=== PATIENT | male | born 1930 | race Caucasian/White ===

== ENCOUNTER 2017-06-24 13:47 | Inpatient (IN) | payer OTHER ==
[2017-06-24 13:47] VITALS: BMI 32.9
--- NOTE | 2017-06-24 14:39 | RAD ---
HISTORY: Fever, cough COMPARISON: 06/10/2015 FINDINGS: LUNGS: No active pulmonary disease. PLEURA: No significant pleural effusion identified, no pneumothorax apparent. CARDIOVASCULAR: Normal. OSSEOUS STRUCTURES: No significant abnormalities. VISUALIZED UPPER ABDOMEN: Normal. OTHER FINDINGS: None. IMPRESSION: No active disease.
[2017-06-24 14:54] LABS: VENOUS BLOOD GAS BASE EXCESS -2.2 mmol/L (0.0-2.0); VENOUS BLOOD GAS PCO2 37 mmHg (40-60); VENOUS BLOOD GAS PO2 31 mm/Hg (30-55); VENOUS BLOOD PH 7.39 (7.32-7.43)
[2017-06-24 14:55] LABS: BASO % 0.3 % (0.0-2.0); EOS % 0.2 % (0.0-4.0); HEMOGLOBIN 15.1 g/dL (12.0-18.0); LYMPH # 0.9 K/uL (1.0-4.3); LYMPH % 17.9 % (20.0-40.0); MEAN CORPUSCULAR HEMOGLOBIN 27.8 pg (27.0-31.0); MEAN CORPUSCULAR HGB CONC 34.4 g/dL (33.0-37.0); MEAN PLATELET VOLUME 10.1 fL (7.2-11.7); MONO # 0.6 K/uL (0.0-0.8); MONO % 11.2 % (0.0-10.0); NEUT # 3.5 K/uL (1.8-7.0); NEUT % 70.4 % (50.0-75.0); RBC 5.44 Mil/uL (4.40-5.90); RED CELL DISTRIBUTION WIDTH 15.5 % (11.5-14.5)
[2017-06-24 14:57] LABS: INR 1.2; MEAN CELL VOLUME 80.9 fL (80.0-94.0); PROTHROMBIN TIME 13.2 SECONDS (9.7-12.2)
[2017-06-24 14:59] LABS: ALB/GLOB RATIO 1.2 (1.0-2.1); ALBUMIN 3.8 g/dL (3.5-5.0); ALT/SGPT 52 U/L (21-72); AST/SGOT 78 U/L (17-59); BLOOD UREA NITROGEN 21 mg/dL (9-20); CALCIUM 8.8 mg/dl (8.6-10.4); GFR AFRICAN-AMERICAN > 60; GFR NON-AFRICAN AMERICAN 52
[2017-06-24 16:00] LABS: URINE BILIRUBIN NEGATIVE (NEGATIVE); URINE BLOOD NEGATIVE (NEGATIVE); URINE CLARITY Clear (Clear); URINE COLOR Amber (YELLOW); URINE GLUCOSE (UA) NORMAL (Normal); URINE LEUKOCYTE ESTERASE NEG Leu/uL (Negative); URINE PROTEIN 1+ mg/dL (NEGATIVE)
[2017-06-24] MEDS ORDERED: Vancomycin 1 gm/NS 200 ml 1 GM/200 ML BAG IVPB STA (16:25)
[2017-06-24] MEDS ORDERED: Aztreonam 2 GM in Sodium Chloride 0.9% 100 ML IVPB STA (16:25)
--- NOTE | 2017-06-24 17:11 | C.PDOC ---
Time Seen by Provider: 06/24/17 14:08 Chief Complaint (Nursing): Fever History Per: Patient, Family Onset/Duration Of Symptoms: Days (1) Current Symptoms Are (Timing): Still Present Associated Symptoms: Fever, Cough (mild), Myalgias Severity: Moderate Additional History Per: Prior Records Past Medical History Reviewed: Historical Data, Nursing Documentation, Vital Signs Vital Signs: Last Vital Signs Temp 100 F H 06/24/17 15:15 Pulse 86 06/24/17 16:17 Resp 18 06/24/17 16:17 BP 91/48 L 06/24/17 16:17 Pulse Ox 95 06/24/17 17:10 - Medical History PMH: Arthritis, Asthma, Bronchitis, COPD, HTN, Parkinson's Disease - [facility] Procedures VACCINATION NEC (03/16/14) Family History: States: Unknown Family Hx - Social History Hx Tobacco Use: Yes Hx Alcohol Use: No Hx Substance Use: No - Immunization History Hx Tetanus Toxoid Vaccination: No Hx Influenza Vaccination: Yes Hx Pneumococcal Vaccination: Yes Review Of Systems Except As Marked, All Systems Reviewed And Found Negative. Constitutional: Positive for: Fever, Malaise ENT: Negative for: Throat Pain Cardiovascular: Negative for: Chest Pain Respiratory: Negative for: Shortness of Breath, Hemoptysis Gastrointestinal: Negative for: Vomiting, Abdominal Pain, Diarrhea Genitourinary: Negative for: Dysuria Musculoskeletal: Negative for: Neck Pain, Back Pain Skin: Negative for: Rash Neurological: Negative for: Weakness, Numbness, Seizures, Altered Mental Status Physical Exam - Physical Exam Appears: Non-toxic, No Acute Distress Skin: Normal Color, Warm, Dry, No Rash Head: Atraumatic, Normacephalic Eye(s): bilateral: Normal Inspection, PERRL, EOMI Neck: Normal ROM, Supple Cardiovascular: Rhythm Regular Respiratory: Normal Breath Sounds, No Accessory Muscle Use Gastrointestinal/Abdominal: Soft, No Tenderness Back: No CVA Tenderness Extremity: Normal ROM Neurological/Psych: Oriented x3, Normal Speech, Normal Cognition, Normal Motor, Normal Sensation ED Course And Treatment - Laboratory Results Result Diagrams: 06/24/17 14:42 06/24/17 14:42 ECG: Interpreted By Me, Viewed By Me ECG Rhythm: Sinus Tachycardia, Nonspecific Changes Rate From EC O2 Sat by Pulse Oximetry: 95 Pulse Ox Interpretation: Normal - Radiology CXR: Viewed By Me, Read By Radiologist CXR Interpretation: Yes: No Acute Disease Reassessment Condition: Improved Progress - Interventions Interventions:: Observation, Intravenous fluid - Medications Administered Oral: Acetaminophen Intravenous: Other (Abx) - Data Reviewed Data Reviewed: Lab, Diagnostic imaging, EKG, Old records - Patient Status Patient status: Partially improved - Critical Care Citical Care: Excluding Proc Time Critical Care Time: 60 minutes - Continuity of Care Discussed patient case with:: Patient, Family-HIPPA compliant, ED Nurse, PMD - Patient Plan Patient Plan: Admission, Telemetry Disposition Discussed With DrPerfecto: Greg Ryan Comment: He accepted pt on his service. Doctor Will See Patient In The: Hospital Counseled Patient/Family Regarding: Studies Performed, Diagnosis - Disposition Disposition: HOSPITALIZED Disposition Time: 17:13 Condition: FAIR - Clinical Impression Clinical Impression: Sepsis, Fever, unknown origin
[2017-06-24] MEDS ORDERED: Sodium Chloride 0.9% 1,000 ML IV ONE (17:58)
[2017-06-24 18:12] LABS: VENOUS BLOOD GAS BASE EXCESS -2.4 mmol/L (0.0-2.0); VENOUS BLOOD GAS PCO2 34 mmHg (40-60); VENOUS BLOOD GAS PO2 53 mm/Hg (30-55); VENOUS BLOOD PH 7.41 (7.32-7.43)
[2017-06-24] MEDS ORDERED: Sodium Chloride 0.9% 500 ML IV SCH (18:15)
[2017-06-24] MEDS ORDERED: Sodium Chloride 0.9% 1,000 ML IV SCH (18:15)
[2017-06-24] MEDS ORDERED: Albuterol-Ipratrop 3 mg / 0.5 (3 ml) UD ONE (20:26)
[2017-06-24] MEDS: Albuterol-Ipratrop 3 mg / 0.5 (3 ml) UD INH SCH (20:38)
[2017-06-24] MEDS: Vancomycin 1 gm/NS 200 ml 1 GM/200 ML BAG IVPB SCH (22:23)
[2017-06-25] MEDS: Piperacill/Tazo 3.375gm in Dex 3.375 GM/50 ML BAG IVPB SCH ×4 (00:03→22:38)
[2017-06-25] MEDS: Albuterol-Ipratrop 3 mg / 0.5 (3 ml) UD INH SCH ×3 (07:49→20:00)
[2017-06-25] MEDS ORDERED: TRICOR 134 MG PO SCH (10:00)
--- NOTE | 2017-06-25 20:36 | CP.PCM.CON ---
History of Present Illness - History of Present Illness History of Present Illness: INFECTIOUS DISEASE CONSULT; PATIENT SEEN AND EXAMINED , HISTORY OBTAINED WITH THE FAMILY WITH AN SAXOPHONE PLAYER. CONSULTATION DICTATED. DICTATION NUMBER; # [id number]. SEE REPORTS.. Past Patient History - Infectious Disease Hx of Infectious Diseases: None - Past Medical History & Family History Past Medical History?: Yes - Past Social History Smoking Status: Former Smoker - CARDIAC Hx Cardiac Disorders: Yes Hx Hypertension: Yes - PULMONARY Hx Respiratory Disorders: Yes Hx Asthma: Yes Hx Bronchitis: Yes Hx Chronic Obstructive Pulmonary Disease (COPD): Yes - NEUROLOGICAL Hx Neurological Disorder: Yes Hx Parkinson's Disease: Yes - HEENT Hx HEENT Problems: Yes Hx Cataracts: Yes (s/p surgery) - RENAL Hx Chronic Kidney Disease: No - ENDOCRINE/METABOLIC Hx Endocrine Disorders: No - HEMATOLOGICAL/ONCOLOGICAL Hx Blood Disorders: No - INTEGUMENTARY Hx Dermatological Problems: No - MUSCULOSKELETAL/RHEUMATOLOGICAL Hx Musculoskeletal Disorders: Yes Hx Arthritis: Yes Hx Falls: No - GASTROINTESTINAL Hx Gastrointestinal Disorders: No - GENITOURINARY/GYNECOLOGICAL Hx Genitourinary Disorders: Yes Hx Prostate Cancer: Yes Other/Comment: Prostate CA with seeds implated 2004 - PSYCHIATRIC Hx Psychophysiologic Disorder: No Hx Substance Use: No - SURGICAL HISTORY Hx Surgeries: Yes Hx Cataract Extraction: Yes (Left 2012 Right 2014) - ANESTHESIA Hx Anesthesia: Yes Hx Anesthesia Reactions: No Hx Malignant Hyperthermia: No Meds Allergies/Adverse Reactions: Allergies Allergy/AdvReac Type Severity Reaction Status Date / Time No Known Allergies Allergy Verified 05/08/15 18:44 - Medications Medications: Current Medications Acetaminophen (Tylenol 325mg Tab) 650 mg PO Q6 PRN PRN Reason: Fever >100.4 F Last Admin: 06/25/17 01:25 Dose: 650 mg Albuterol/Ipratropium (Duoneb 3 Mg/0.5 Mg (3 Ml) Ud) 3 ml INH RQ6 [facility] Last Admin: 06/25/17 20:00 Dose: 3 ml Aspirin (Ecotrin) 81 mg PO DAILY [facility] Last Admin: 06/25/17 09:35 Dose: 81 mg Clopidogrel Bisulfate (Plavix) 75 mg PO DAILY [facility] Last Admin: 06/25/17 09:35 Dose: 75 mg Fenofibrate (Tricor) 48 mg PO DAILY [facility] Last Admin: 06/25/17 17:34 Dose: 48 mg Furosemide (Lasix) 20 mg PO DAILY [facility] Last Admin: 06/25/17 12:36 Dose: Not Given Guaifenesin/Dextromethorphan (Robitussin Dm) 5 ml PO Q4H PRN PRN Reason: Cough Piperacillin Sod/Tazobactam Sod (Zosyn 3.375 Gm Iv Premix) 3.375 gm in 50 mls @ 100 mls/hr IVPB Q8 [facility] PRN Reason: Protocol Last Admin: 06/25/17 13:30 Dose: 100 mls/hr Vancomycin/Sodium Chloride (Vancomycin 1 Gm/Ns 200 Ml) 1 gm in 200 mls @ 133.333 mls/hr IVPB Q24H [facility] PRN Reason: Protocol Last Admin: 06/24/17 22:23 Dose: Not Given Losartan Potassium (Cozaar) 50 mg PO DAILY [facility] Last Admin: 06/25/17 12:36 Dose: Not Given Montelukast Sodium (Singulair) 10 mg PO HS [facility] Last Admin: 06/25/17 00:21 Dose: 10 mg Rosuvastatin Calcium (Crestor) 10 mg PO HS [facility] Topiramate (Topamax) 25 mg PO BID [facility] Last Admin: 06/25/17 17:34 Dose: 25 mg Results - Vital Signs Recent Vital Signs: Last Vital Signs Temp 98.6 F 06/25/17 15:00 Pulse 82 06/25/17 16:00 Resp 20 06/25/17 15:00 BP 100/57 L 06/25/17 15:00 Pulse Ox 97 06/25/17 15:00 - Labs Result Diagrams: 06/24/17 14:42 06/24/17 14:42
[2017-06-25] MEDS: Vancomycin 1 gm/NS 200 ml 1 GM/200 ML BAG IVPB SCH (21:13)
--- NOTE | 2017-06-25 21:51 | CARD ---
APPROVED REPORT EKG Measurement Heart [id number] <Conclusion> Sinus tachycardia Otherwise normal ECG
[2017-06-25] MEDS: guaiFENesin DM 100 mg-10 mg/5 ml UD PO PRN (22:39)
[2017-06-26] MEDS: Albuterol-Ipratrop 3 mg / 0.5 (3 ml) UD INH SCH ×4 (01:15→19:49)
--- NOTE | 2017-06-26 02:17 | HP ---
HISTORY OF PRESENT ILLNESS: The patient is an 86 years old male with history of hypertension, history of Parkinson disease, CA of the prostate. The patient came to the emergency room because the patient was found to have 103 fever. Also, the patient was complaining of chills. The patient admits to having some myalgias and also congestive cough. ALLERGIES: THE PATIENT HAS NO KNOWN ALLERGY. PAST MEDICAL HISTORY: As I mentioned history of asthma, COPD, hypertension, Parkinson disease, CA of the prostate. SOCIAL HISTORY: The patient is living with , had history of smoking but patient has stopped smoking now. FAMILY HISTORY: No inherited disease. REVIEW OF SYSTEMS: RESPIRATORY: The patient complaining of congestive cough and shortness of breath on exertion. CARDIOVASCULAR: The patient denied any palpitation or chest pain. GI: No nausea, vomiting. No constipation. : The patient has been having some urinary frequency but denied any burning, any dysuria. NEURO: The patient is complaining of some tremor. PHYSICAL EXAMINATION: GENERAL: The patient is alert, awake, and oriented x3 and ambulatory. VITAL SIGNS: Temperature was 103 Fahrenheit and now the temperature after treatment medications is 98.6 but earlier this morning when I saw the patient, it was 99.4, blood pressure is 100/57, pulse is 82, respirations 20 and O2 saturation is 99. HEENT: Head is normocephalic. LUNGS: He has some rhonchi at the bases and some fine rales. HEART: Regular rate and rhythm. No murmur noted. ABDOMEN: Obese, nontender. No palpable mass. EXTREMITIES: There is no edema. NEURO: Tremor of the upper extremities that is stopped on resting the hands upon a hard surface. LABORATORY DATA: The patient's blood work has shown that WBC is 5, hemoglobin 16.1, hematocrit 44, and platelets is 101. Chemistry showed that the sodium 142, potassium 3.8, chloride 103, bicarb 24, BUN 21, creatinine 1.3 and glucose 116, phosphorus is 2.2, magnesium 2.4, AST 78, ALT 52, alkaline phosphatase 52, albumin is 3.8, globulin 3.2 and total protein is 7. Coag; PT 13.2, INR 1.2, PTT is 28. The patient's chest x-ray done in the emergency room showed that there is no active disease. ASSESSMENT AND PLAN: So, the patient will be admitted with diagnosis of sepsis and chronic obstructive pulmonary disease, hypertension, Parkinson disease and history of cancer of the prostate with radiation. The patient will have a consult with Dr. Carol Ann Tripp the ID. I mentioned that the patient has influenza, 1 and 2, that was negative. The case was evaluated by myself, Filomena Sanon at that time was not present. Greg Ryan MD
[2017-06-26] MEDS: Piperacill/Tazo 3.375gm in Dex 3.375 GM/50 ML BAG IVPB SCH ×3 (05:43→21:47)
[2017-06-26 07:45] LABS: BASO % 0.7 % (0.0-2.0); EOS % 1.1 % (0.0-4.0); HEMOGLOBIN 13.3 g/dL (12.0-18.0); LYMPH # 0.7 K/uL (1.0-4.3); LYMPH % 19.1 % (20.0-40.0); MEAN CELL VOLUME 80.6 fL (80.0-94.0); MEAN CORPUSCULAR HEMOGLOBIN 27.5 pg (27.0-31.0); MEAN CORPUSCULAR HGB CONC 34.1 g/dL (33.0-37.0); MEAN PLATELET VOLUME 10.5 fL (7.2-11.7); MONO # 0.3 K/uL (0.0-0.8); MONO % 8.1 % (0.0-10.0); NEUT # 2.6 K/uL (1.8-7.0); NRBC % 0.2 % (0.0-2.0); RBC 4.82 Mil/uL (4.40-5.90); RED CELL DISTRIBUTION WIDTH 15.1 % (11.5-14.5); WHITE BLOOD COUNT 3.7 K/uL (4.8-10.8)
--- NOTE | 2017-06-26 08:07 | CON ---
DATE: INFECTIOUS DISEASE CONSULTATION REQUESTED BY: Dr. Ryan. REASON FOR CONSULTATION: Fever and sepsis. HISTORY OF PRESENT ILLNESS: The patient is an 86-year-old Tajik speaking male who is admitted by the emergency room because of elevated fevers of 101, hypertension with blood pressure of 90/48 and feeling weak and dizzy. The patient had occult sepsis in the ER, and after appropriate cultures, was placed on IV Azactam 1 gm every 12 hourly and vancomycin 1 gm dose was given. Initial chest x-ray was unremarkable, and urinalysis was nonspecific. The patient also had no leukocytosis with WBC count of 5 but he had lactate level of 1.7 and 1.8. Also slight transaminases were elevated with AST of 78 and ALT of 52. The patient also complains of dizziness and weakness. The patient has history of arthritis, asthma, bronchitis, COPD, hypertension, and Parkinsonism disease. History obtained with an flag maker, the nurse who speaks fluent Tajik. The patient gives history of dizziness and weakness as reported above. Also complains of dry cough with little or no expectorations. Denies any loss of weight but states since she has been having fevers over the past few days, his appetite was poor. The patient denies any sore throats or any recent travel. The patient denies any history of sick contacts. The patient lives with his family. PAST MEDICAL HISTORY: As above, history of arthritis, asthma, bronchitis, COPD, hypertension, and parkinsonism disease. SOCIAL HISTORY: The patient does admit to smoking two cigarettes a day. Denies alcohol use. Denies any substance abuse. IMMUNIZATION HISTORY: He is up to date on influenza vaccination and pneumococcal vaccination. Not sure of tetanus toxoid vaccination. FAMILY HISTORY: Unremarkable. MEDICATIONS: As per chart reviewed. The patient is presently on Cozaar 50 mg p.o. daily, Crestor 10 mg p.o. at bedtime., albuterol, DuoNeb 3 mg 3 mL every 6 hourly as scheduled. Aspirin 81 mg p.o. once a day, Lasix 20 mg once a day, Plavix 75 mg p.o. daily. Also getting cough syrup and Singulair 10 mg p.o. daily, Topamax 25 mg p.o. b.i.d., Tricor 48 mg p.o. daily, and presently on Zosyn 3.375 every 8 hourly and vancomycin 1 gm every 24 hourly as placed yesterday by myself. REVIEW OF SYSTEMS: RESPIRATORY: Complains of dry cough with little or no expectorations. CARDIOVASCULAR: Denies any chest pain, palpitations. GI: Denies any diarrhea, obstipation, nausea or vomiting. : Unremarkable. No dysuria. No hematuria. BODY MECHANIC: Denies any headaches, sinus problems, or any postnasal drip. The rest of the review of system is unremarkable. PHYSICAL EXAMINATION: GENERAL: The patient is an 86-year-old male, well-built, well-nourished. VITAL SIGNS: Height 5 feet 2 inches, weight 179 pounds 8 ounces. HEENT: Pupils are equal and reactive to light and accommodation. Extraocular movements are full. Fundus is negative. Sclerae nonicteric. Conjunctivae normal. JVP not elevated. NECK: Appears to be supple. No carotid bruit. LUNGS: Fair air entry. CARDIOVASCULAR SYSTEM: S1, S2. No murmur or gallop. Regular rhythm. ABDOMEN: Soft, obese. Bowel sounds are present. No organomegaly appreciated. BACK: No CVA tenderness. EXTREMITIES: No cyanosis, clubbing, or edema. BODY MECHANIC: No gross deficits. Moves all extremities. Speech is normal. Normal cognition. Normal motor and normal sensation. LABORATORY DATA: WBCs 5, H and H are 15.1 and 44. Platelets are 101. Creatinine 1.3, BUN of 18, serum lactate 1.8. Urinalysis negative. Chest x-ray reported to be negative. IMPRESSION: 1. Sepsis syndrome. 2. Fever, etiology not clear. 3. Dizziness. 4. Chronic obstructive pulmonary disease. 5. Arthritis. PLAN: Pancultures. Continue IV Zosyn 3.375 every 8 hourly as ordered on 06/24/2017. Also continue IV vancomycin 1 gm every 24 hourly for now, started 06/24/2017. Follow up culture and sensitivity to adjust antibiotics. The patient to be followed closely for any change in mental status or other changes. Consider Neurology evaluation for dizziness as etiology of dizziness not clear. Thank you very much for allowing me to participate in the care of your patient. We will follow along with you and discuss the patient with you. Carol Ann Tripp MD [facility] # [id number]
[2017-06-26 08:15] LABS: ALB/GLOB RATIO 1.1 (1.0-2.1); ALBUMIN 2.9 g/dL (3.5-5.0); ALT/SGPT 59 U/L (21-72); AST/SGOT 72 U/L (17-59); BILIRUBIN,DIRECT 0.6 mg/dL (0.0-0.4); BLOOD UREA NITROGEN 16 mg/dL (9-20); CALCIUM 8.3 mg/dl (8.6-10.4); GFR AFRICAN-AMERICAN > 60; GFR NON-AFRICAN AMERICAN 52
[2017-06-26 08:30] LABS: HEPATITIS B SURFACE AG Negative (NEGATIVE)
[2017-06-26 08:35] LABS: HEPATITIS A IGM NEGATIVE (NEGATIVE)
[2017-06-26 08:47] LABS: HEPATITIS C ANTIBODY NEGATIVE (NEGATIVE)
[2017-06-26 09:15] LABS: HEPATITIS B CORE AB NEGATIVE (NEGATIVE)
--- NOTE | 2017-06-26 12:54 | CP.PCM.PN ---
Subjective - Date & Time of Evaluation Date of Evaluation: 06/26/17 Time of Evaluation: 12:54 - Subjective Subjective: SPIKED FEVER OF 102.2 LAST NIGHT. VSS C/O DIZZINESS. AND GENERALIZED ITCHING D.DIMER ELEVATED generalized maculopapular rash all over body ? -drug rash. ? VANCOMYCIN HELD BY DR FUNK WHO SAW HIM EARLIER CT ANGIO PE PROTOCOL -VE PE. LABS NOTED. LDH 822 HIGH ? LYMPHOMA. CRP 57.50 HIGH WBC 3.7 PLT 91 LOW/DECREASING HEPATITIS SCREEN A,B C SEROLOGY -VE DISCUSSED WITH STAFF. Objective - Vital Signs/Intake and Output Vital Signs (last 24 hours): Temp Pulse Resp BP Pulse Ox 98 F 95 H 20 116/69 100 06/26/17 07:45 06/26/17 08:00 06/26/17 07:45 06/26/17 10:11 06/26/17 07:45 Intake and Output: 06/26/17 06/26/17 06:59 18:59 Intake Total 160 Output Total 500 Balance -340 - Medications Medications: Current Medications Acetaminophen (Tylenol 325mg Tab) 650 mg PO Q4H PRN PRN Reason: Temperature Last Admin: 06/26/17 01:07 Dose: 650 mg Albuterol/Ipratropium (Duoneb 3 Mg/0.5 Mg (3 Ml) Ud) 3 ml INH RQ6 [facility] Last Admin: 06/26/17 07:43 Dose: 3 ml Aspirin (Ecotrin) 81 mg PO DAILY [facility] Last Admin: 06/26/17 10:14 Dose: 81 mg Clopidogrel Bisulfate (Plavix) 75 mg PO DAILY [facility] Last Admin: 06/26/17 10:14 Dose: 75 mg Fenofibrate (Tricor) 48 mg PO DAILY [facility] Last Admin: 06/26/17 10:13 Dose: 48 mg Furosemide (Lasix) 20 mg PO DAILY [facility] Last Admin: 06/26/17 10:11 Dose: 20 mg Guaifenesin/Dextromethorphan (Robitussin Dm) 5 ml PO Q4H PRN PRN Reason: Cough Last Admin: 06/25/17 22:39 Dose: 5 ml Piperacillin Sod/Tazobactam Sod (Zosyn 3.375 Gm Iv Premix) 3.375 gm in 50 mls @ 100 mls/hr IVPB Q8 [facility] PRN Reason: Protocol Last Admin: 06/26/17 05:43 Dose: 100 mls/hr Vancomycin/Sodium Chloride (Vancomycin 1 Gm/Ns 200 Ml) 1 gm in 200 mls @ 133.333 mls/hr IVPB Q24H [facility] PRN Reason: Protocol Last Admin: 06/25/17 21:13 Dose: 133.333 mls/hr Losartan Potassium (Cozaar) 50 mg PO DAILY [facility] Last Admin: 06/26/17 10:13 Dose: 50 mg Montelukast Sodium (Singulair) 10 mg PO HS [facility] Last Admin: 06/25/17 21:13 Dose: 10 mg Rosuvastatin Calcium (Crestor) 10 mg PO HS [facility] Last Admin: 06/25/17 21:13 Dose: 10 mg Topiramate (Topamax) 25 mg PO BID [facility] Last Admin: 06/26/17 10:11 Dose: 25 mg - Labs Labs: 06/26/17 07:35 06/26/17 07:27 PT 13.2 SECONDS (9.7-12.2) H 06/24/17 14:42 INR 1.2 06/24/17 14:42 APTT 28 SECONDS (21-34) 06/24/17 14:42 - Constitutional Appears: No Acute Distress - Head Exam Head Exam: NORMAL INSPECTION - Eye Exam Eye Exam: EOMI, PERRL - ENT Exam ENT Exam: Normal Oropharynx - Neck Exam Neck Exam: Normal Inspection - Respiratory Exam Respiratory Exam: Clear to Ausculation Bilateral - Cardiovascular Exam Cardiovascular Exam: Tachycardia, REGULAR RHYTHM, +S1, +S2 - GI/Abdominal Exam GI & Abdominal Exam: Soft, Normal Bowel Sounds. absent: Organomegaly - Extremities Exam Extremities Exam: Normal Capillary Refill, Pedal Edema (1+). absent: Calf Tenderness - Neurological Exam Neurological Exam: Awake, CN II-XII Intact, Normal Gait - Psychiatric Exam Psychiatric exam: Normal Mood - Skin Skin Exam: Normal Color, Warm Assessment and Plan (1) Fever, unknown origin Assessment & Plan: W/U IN PROGRESS. REPEAT BLOOD CULTURE X 2 SETS ORDERED 06/26/17 Status: Acute (2) Sepsis Assessment & Plan: MERAZ CULTURE 2D ECHO R/O VEGS- CONSIDER CT ABDOMEN/PELVIS WITH PO CONTRAST R/O LYMPHADENOPATHY VS OCCULT MALIGNANCY CONTINUE IV ZOSYN 3.375MG IV Q 8HRLY 06/25/17 IV VANCOMYCIN 1GM IVPB [id number] 06/25/17.- D/C.IN VIEW OF RASH F/U CULTURES TO ADJUST ABX. Status: Acute (3) Dizziness Assessment & Plan: H/O SYNCOPY AT HOME FOR FEW SECS PER PT/FAMILY MEMBERS. CONSIDER REPEAT MRI BRAIN AND NEURO EVAL. 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 PT SYMPTOMATIC FROM RT. ICA STENOSIS/ AND HAD DEEP PONTINE INFARCT PER NEURO AT THAT TIME. PT DOES HAVE RESIDUAL WEAKNESS RT.SIDE Status: Acute (4) Hypertension Status: Acute (5) COPD exacerbation Status: Acute (6) Ambulatory dysfunction Status: Acute (7) Thrombocytopenia Assessment & Plan: HIV 1/2 ANTIBODY TEST. LYMPHOCYTE SUBSET STUDIES Status: Acute (8) Allergic drug rash due to anti-infective agent Assessment & Plan: VANCOMYCIN D/C. CONTINUE TO OBSERVE FOR ANY FURTER EXTENSION OF RASH PT.PRESENTLY ON IV ZOSYN Status: Acute
[2017-06-26] MEDS ORDERED: Potassium Chloride 20 mEq ER Tab PO ONE (14:01)
[2017-06-26] MEDS ORDERED: Iodixanol 320 mg/ml 150 ml Bottle IV ONE (14:43)
--- NOTE | 2017-06-26 17:40 | CT ---
PROCEDURE: CT Chest with contrast (Pulmonary Angiogram) HISTORY: Syncope. Elevated D-dimer. COMPARISON: None available. TECHNIQUE: Axial computed tomography images were obtained of the chest in the pulmonary arterial phase of enhancement. Coronal and sagittal reformatted images were created and reviewed. Intravenous contrast dose: 100 cc Visipaque 320 contrast material. Radiation dose: Total exam DLP = 407.58 mGy-cm. This CT exam was performed using one or more of the following dose reduction techniques: Automated exposure control, adjustment of the mA and/or kV according to patient size, and/or use of iterative reconstruction technique. Note that study is limited due to suboptimal opacification of the pulmonary arteries FINDINGS: PULMONARY ARTERIES: The visualized portions of the pulmonary trunk, right and left main, lobar and proximal segmental branches of the pulmonary arteries are poorly opacified particularly the more distal margins of these vessels. No definitive significant large central filling defects are identified at this time to suggest central pulmonary embolus. Note that the distal branches cannot be adequately evaluated. The pulmonary trunk measures approximately 3 cm. AORTA: Ascending thoracic aorta measures approximately 3.6 cm and descending thoracic aorta measures approximately 2.7 cm. LUNGS: Minor atelectasis and/or scarring changes both lung bases including the lingular and middle lobe regions. There is a more discrete somewhat elliptical shaped somewhat translucent opacity in the left medial lung base adjacent to the left cardiac border that could represent some chronic rounded atelectasis and/or scarring PLEURAL SPACES: Unremarkable. No effusion or pneumothorax. HEART: Heart size is within range of normal. No significant pericardial effusion. LYMPH NODES: No significant mediastinal or hilar adenopathy. . BONES, CHEST WALL: Minor multilevel degenerative spondylosis of the thoracic spine. There are no acute compression fractures nor retropulsed fragments. OTHER FINDINGS: Small hiatal hernia with slight wall thickening of the distal esophagus likely due to protrusion of gastric mucosa. The possibility of esophagitis not excluded. IMPRESSION: Very limited study due to suboptimal opacification of the pulmonary arteries. No definitive evidence of large central pulmonary embolus. Minor atelectasis and or previous scarring changes both lung bases including the lingular and middle lobe regions.There is a more discrete somewhat elliptical shaped somewhat translucent opacity in the left medial lung base adjacent to the left cardiac border that could represent some chronic rounded atelectasis and/or scarring. Follow-up CT scan at interval recommended to assess stability.
--- NOTE | 2017-06-26 20:41 | PN ---
DATE: 06/26/2017 SUBJECTIVE: Today, the patient is alert and awake. Denied any shortness of breath although the patient had some fever last night of 102. Denied any palpitation or chest pain. The patient denied any constipation. PHYSICAL EXAMINATION: VITAL SIGNS: The patient has a blood pressure of 116/69, pulse 84, respirations 20 and temperature 98 degree Fahrenheit. NECK: Supple. No JVD. LUNGS: Clear. Show some rhonchi. HEART: Regular rate and rhythm. Positive extra murmur. ABDOMEN: Soft, obese and nontender. No palpable mass. EXTREMITIES: There is no edema. SKIN: Show some rash of the back and also around the neck. LABORATORY DATA: The patient had some labs done. The lab showed that WBC 3.7, hemoglobin 13.3, hematocrit 38.9. Chemistries; sodium 143, potassium is 3.5, chloride 109, bicarb is 24, total protein is 5.7, C-reactive protein is 67.5. PLAN: The plan is that we are going to stop the vancomycin and start the patient on Benadryl 25 mg twice a day and continue the Zosyn. The case was reviewed and discussed with Ariana Marrero, the nurse practitioner. Greg Ryan MD
[2017-06-27] MEDS: Albuterol-Ipratrop 3 mg / 0.5 (3 ml) UD INH SCH ×4 (01:33→20:19)
[2017-06-27] MEDS: Piperacill/Tazo 3.375gm in Dex 3.375 GM/50 ML BAG IVPB SCH ×3 (05:47→21:28)
[2017-06-27 08:14] LABS: HEMOGLOBIN 12.5 g/dL (12.0-18.0); MEAN CELL VOLUME 79.3 fL (80.0-94.0); MEAN CORPUSCULAR HEMOGLOBIN 27.3 pg (27.0-31.0); MEAN CORPUSCULAR HGB CONC 34.5 g/dL (33.0-37.0); MEAN PLATELET VOLUME 10.8 fL (7.2-11.7); RBC 4.56 Mil/uL (4.40-5.90); WHITE BLOOD COUNT 4.1 K/uL (4.8-10.8)
[2017-06-27] MEDS: Docusate-Senna 50 mg-8.6 mg Tab PO SCH ×2 (10:24→17:14)
--- NOTE | 2017-06-28 00:33 | PN ---
DATE: 06/27/2017 SUBJECTIVE: Today, the patient is alert, awake, able to ambulate today in the hallway with minimal shortness of breath. The patient is complaining of insomnia, has chest pain, no palpitations. No dizziness. The patient complaining of some slight headache. PHYSICAL EXAMINATION: VITAL SIGNS: Blood pressure 116/67, pulse 87, respirations 20, temperature 98.9. NECK: Supple. LUNGS: Has some rhonchi at the bases. HEART: Regular rate and rhythm. ABDOMEN: Soft and obese. Nontender. No palpable mass. EXTREMITIES: There is no edema. NEUROLOGIC: The patient has tremor of the upper extremity, which is old. LABORATORY DATA: Labs showed WBC 4.1, hemoglobin 12.5, hematocrit 36.2 and platelets 100. Chemistry shows sodium 143, potassium 2.5 yesterday. PLAN: We are going continue the current medication antibiotics and also we are going to have a chest x-ray in the morning. Greg Ryan MD
[2017-06-28] MEDS: Albuterol-Ipratrop 3 mg / 0.5 (3 ml) UD INH SCH ×4 (01:16→22:08)
[2017-06-28] MEDS: Piperacill/Tazo 3.375gm in Dex 3.375 GM/50 ML BAG IVPB SCH ×3 (05:07→21:52)
[2017-06-28] MEDS: Docusate-Senna 50 mg-8.6 mg Tab PO SCH ×2 (09:57→19:04)
--- NOTE | 2017-06-28 10:58 | RAD ---
HISTORY: COPD COMPARISON: Comparison made with CTA chest 06/26/2017 chest radiograph dated 06/24/2017. TECHNIQUE: Chest PA and lateral FINDINGS: LUNGS: Mild bibasilar atelectasis greater left than right. . Previously noted somewhat elliptical shaped opacity in the left retrocardiac region and few smaller nodular opacities bilateral upper and lower lobes are the are less well seen compared to high-resolution CT chest. . PLEURA: No significant pleural effusion identified. No pneumothorax apparent. CARDIOVASCULAR: Normal. OSSEOUS STRUCTURES: No significant abnormalities. VISUALIZED UPPER ABDOMEN: Normal. OTHER FINDINGS: None. IMPRESSION: Mild bibasilar atelectasis greater left than right. . Previously noted somewhat elliptical shaped opacity in the left retrocardiac region and a few smaller nodular opacities bilateral upper and lower lobes less well seen compared to high-resolution CT chest. .
[2017-06-28 12:23] LABS: BASO % 0.4 % (0.0-2.0); EOS # 0.1 K/uL (0.0-0.7); LYMPH # 0.6 K/uL (1.0-4.3); LYMPH % 12.7 % (20.0-40.0); MEAN CELL VOLUME 79.4 fL (80.0-94.0); MEAN CORPUSCULAR HEMOGLOBIN 27.7 pg (27.0-31.0); MEAN PLATELET VOLUME 10.5 fL (7.2-11.7); MONO # 0.3 K/uL (0.0-0.8); MONO % 6.2 % (0.0-10.0); NEUT # 3.4 K/uL (1.8-7.0); NEUT % 78.7 % (50.0-75.0); RBC 4.69 Mil/uL (4.40-5.90); WHITE BLOOD COUNT 4.3 K/uL (4.8-10.8)
[2017-06-28 12:48] LABS: BLOOD UREA NITROGEN 16 mg/dL (9-20); CALCIUM 8.7 mg/dl (8.6-10.4); GFR AFRICAN-AMERICAN > 60; GFR NON-AFRICAN AMERICAN 58
--- NOTE | 2017-06-28 12:53 | CP.PCM.PN ---
Subjective - Date & Time of Evaluation Date of Evaluation: 06/28/17 Time of Evaluation: 12:53 - Subjective Subjective: FEBRILE , TMAX 101.6 VS BP 107/55. RASH GENERALIZED MUCH IMPROVED.?DRUG RASH SEC TO VANCOMYCIN PER DAUGHTER KAMI PT C/O HEADACHE. FATHER HOLDING HIS HEAD AT TIMES. ALSO HAVING PRODUCTIVE COUGH. ALL CULTURES -VE TO DATE. LABS REVIEWED; LDH HIGH CRP HIGH ESR 30 Objective - Vital Signs/Intake and Output Vital Signs (last 24 hours): Temp Pulse Resp BP Pulse Ox 98.0 F 85 18 105/65 100 06/28/17 07:30 06/28/17 07:30 06/28/17 07:30 06/28/17 09:57 06/28/17 07:30 - Medications Medications: Current Medications Acetaminophen (Tylenol 325mg Tab) 650 mg PO Q4H PRN PRN Reason: Temperature Last Admin: 06/28/17 00:02 Dose: 650 mg Albuterol/Ipratropium (Duoneb 3 Mg/0.5 Mg (3 Ml) Ud) 3 ml INH RQ6 [facility] Last Admin: 06/28/17 08:06 Dose: 3 ml Aspirin (Ecotrin) 81 mg PO DAILY [facility] Last Admin: 06/28/17 09:58 Dose: 81 mg Clopidogrel Bisulfate (Plavix) 75 mg PO DAILY [facility] Last Admin: 06/28/17 09:57 Dose: 75 mg Fenofibrate (Tricor) 48 mg PO DAILY [facility] Last Admin: 06/28/17 09:58 Dose: 48 mg Furosemide (Lasix) 20 mg PO DAILY [facility] Last Admin: 06/28/17 09:57 Dose: 20 mg Guaifenesin/Dextromethorphan (Robitussin Dm) 5 ml PO Q4H PRN PRN Reason: Cough Last Admin: 06/25/17 22:39 Dose: 5 ml Piperacillin Sod/Tazobactam Sod (Zosyn 3.375 Gm Iv Premix) 3.375 gm in 50 mls @ 100 mls/hr IVPB Q8 [facility] PRN Reason: Protocol Last Admin: 06/28/17 05:07 Dose: 100 mls/hr Losartan Potassium (Cozaar) 50 mg PO DAILY [facility] Last Admin: 06/28/17 09:57 Dose: 50 mg Montelukast Sodium (Singulair) 10 mg PO HS [facility] Last Admin: 06/27/17 21:28 Dose: 10 mg Rosuvastatin Calcium (Crestor) 10 mg PO [facility] Last Admin: 06/27/17 21:28 Dose: 10 mg Senna/Docusate Sodium (Senokot S 50 Mg-8.6 Mg) 1 tab PO BID [facility] Last Admin: 06/28/17 09:57 Dose: 1 tab Topiramate (Topamax) 25 mg PO BID [facility] Last Admin: 06/28/17 10:09 Dose: 25 mg Trazodone HCl (Desyrel) 50 mg PO [facility] Last Admin: 06/27/17 21:28 Dose: 50 mg - Labs Labs: 06/28/17 12:16 06/28/17 12:16 PT 13.2 SECONDS (9.7-12.2) H 06/24/17 14:42 INR 1.2 06/24/17 14:42 APTT 28 SECONDS (21-34) 06/24/17 14:42 - Constitutional Appears: No Acute Distress - Head Exam Head Exam: NORMAL INSPECTION - Eye Exam Eye Exam: EOMI, PERRL. absent: Scleral icterus - ENT Exam ENT Exam: Normal Oropharynx - Neck Exam Neck Exam: Normal Inspection - Respiratory Exam Respiratory Exam: Decreased Breath Sounds - Cardiovascular Exam Cardiovascular Exam: Tachycardia, REGULAR RHYTHM, +S1, +S2 - GI/Abdominal Exam GI & Abdominal Exam: Soft, Normal Bowel Sounds - Extremities Exam Extremities Exam: Normal Capillary Refill. absent: Calf Tenderness, Pedal Edema - Neurological Exam Neurological Exam: Awake, CN II-XII Intact, Oriented x3, Reflexes Normal - Psychiatric Exam Psychiatric exam: Normal Mood - Skin Skin Exam: Normal Color, Warm Assessment and Plan (1) Fever, unknown origin Assessment & Plan: TB W/U ORDERED QFT -GOLD TB TEST. SPUTUM FOR AFB X3 DAILY IN AM. BLOOD FOR INTERCELLULARE PARASITES- MALARIA,MORULAE OF HGE/HME. 2D ECHO R/O VEGS -P CERETAC SCAN WHOLE BODY R/O OCCULT ABSCESS. Status: Acute (2) Sepsis Assessment & Plan: ALL CULTURES -VE TO DATE. ON IV ABX IV ZOSYN 3.375 IV Q 8HRLY 06/24/17 ADD IV DOXYCYCLINE 100MG IV Q 12HRLY FOR STAPH/AND ATYPICAL ORGANISMS.06/29/17 Status: Acute (3) Dizziness Assessment & Plan: PT C/O HEADACHE/AND DIZZINESS. NEURO EVAL. CONSIDER LP IF NO CONTRAINDICATION/AND APPROPRIATE CULTURES BACTERIAL /VS VIRAL . Status: Acute (4) Hypertension Status: Acute (5) COPD exacerbation Status: Acute (6) Ambulatory dysfunction Status: Acute (7) Thrombocytopenia Status: Acute (8) Allergic drug rash due to anti-infective agent Status: Acute
--- NOTE | 2017-06-28 13:04 | VASCLAB ---
PROCEDURE: Lower Extremity Venous Duplex Exam. HISTORY: Swelling PRIORS: None. TECHNIQUE: Bilateral common femoral, femoral, popliteal and posterior tibial, peroneal and great saphenous veins were evaluated. Flow was assessed with color Doppler, compressibility, assessment of phasic flow and augmentation response. Report prepared by NAHUM Holman, RVT FINDINGS: RIGHT: 1. Common Femoral Vein: 1.1. Compressibility - Fully compressible: Thrombus - None : Flow - Phasic: Augmentation -Normal: Reflux - None. 2. Femoral Vein: 2.1. Compressibility - Fully compressible: Thrombus - None : Flow - Phasic: Augmentation -Normal: Reflux - None. 3. Popliteal Vein: 3.1. Compressibility - Fully compressible: Thrombus - None : Flow - Phasic: Augmentation -Normal: Reflux - None. 4. Posterior Tibial Vein: 4.1. Compressibility - Fully compressible: Thrombus - None: Flow - Phasic: Augmentation -Normal: Reflux - None. 5. Peroneal Vein: 5.1. Compressibility - Fully compressible: Thrombus - None: Flow - Phasic: Augmentation -Normal: Reflux - None. 6. Great Saphenous Vein: 6.1. Compressibility - Fully compressible: Thrombus - None: Flow - Phasic: Augmentation - Normal: Reflux - None. LEFT: 1. Common Femoral Vein: 1.1. Compressibility - Fully compressible: Thrombus - None: Flow - Phasic: Augmentation -Normal: Reflux - None. 2. Femoral Vein: 2.1. Compressibility - Fully compressible: Thrombus - None: Flow - Phasic: Augmentation -Normal: Reflux - None. 3. Popliteal Vein: 3.1. Compressibility - Fully compressible: Thrombus - None : Flow - Phasic: Augmentation -Normal: Reflux - None. 4. Posterior Tibial Vein: 4.1. Compressibility - Fully compressible: Thrombus - None: Flow - Phasic: Augmentation -Normal: Reflux - None. 5. Peroneal Vein: 5.1. Compressibility - Fully compressible: Thrombus - None: Flow - Phasic: Augmentation -Normal: Reflux - None. 6. Great Saphenous Vein: 6.1. Compressibility - Fully compressible: Thrombus - None: Flow - Phasic: Augmentation - Normal: Reflux - None. OTHER FINDINGS: Right: None significant. Left: None significant. IMPRESSION: Right: No evidence of deep or superficial vein thrombosis of the right lower extremity. Normal valve function noted of the right side. Left: No evidence of deep or superficial vein thrombosis of the left lower extremity. Normal valve function noted of the left side.
[2017-06-28] MEDS ORDERED: Tuberculin 5 Units/0.1 ml Inj ID ONE (16:45)
[2017-06-28 17:10] LABS: BLOOD UREA NITROGEN 17 mg/dL (9-20); CALCIUM 8.8 mg/dl (8.6-10.4); GFR AFRICAN-AMERICAN > 60; GFR NON-AFRICAN AMERICAN 58
[2017-06-28 18:21] LABS: URINE BILIRUBIN NEGATIVE (NEGATIVE); URINE BLOOD NEGATIVE (NEGATIVE); URINE CLARITY Hazy (Clear); URINE COLOR Yellow (YELLOW); URINE GLUCOSE (UA) NORMAL (Normal); URINE LEUKOCYTE ESTERASE NEG Leu/uL (Negative); URINE PROTEIN 1+ mg/dL (NEGATIVE); URINE UROBILINOGEN NORMAL mg/dL (0.2-1.0)
[2017-06-29] MEDS: Albuterol-Ipratrop 3 mg / 0.5 (3 ml) UD INH SCH ×4 (01:25→20:04)
[2017-06-29] MEDS: Piperacill/Tazo 3.375gm in Dex 3.375 GM/50 ML BAG IVPB SCH (06:11)
--- NOTE | 2017-06-29 07:08 | PN ---
DATE: SUBJECTIVE: Today, the patient is alert and oriented, however, had fever last night, and the patient denied any shortness of breath on exertion and no dizziness. PHYSICAL EXAMINATION: VITAL SIGNS: The patient has blood pressure of 119/67, pulse is 94, respirations 20, temperature 97.8 now but temperature of 101.3 last night. NECK: Supple. LUNGS: Rales bilaterally which is . HEART: Regular rate and rhythm. ABDOMEN: Soft, obese. Nontender. No palpable mass. EXTREMITIES: There is no edema. LABORATORY DATA: Recent blood test showed that WBC was 4.3, hemoglobin 13, hematocrit 37.3, and platelet is 127. Chemistry: Showed sodium 142, potassium 3.2, bicarb is 26, chloride is 104. BUN is 16, creatinine 1.2, glucose is 138, calcium 8.7. The patient also had a chest x-ray that showed pleural effusion identified but there is a as mentioned mild bibasilar atelectasis, left than right, and there is also a somewhat opacities, bilateral upper and lower lobes still present. So, case was initially discussed with Dr. Carol Ann Tripp, and consider a spinal tap, and also we will order tumor markers including PSA, CEA, CA 19-9, alpha fetoprotein, and also we are going to add Lyme titers. Potassium will be replaced, and the patient received trazodone and Lunesta 2 mg and case was discussed and agreed with his family. Case was reviewed and discussed with HOLLIS Benito, the nurse practitioner. Greg Ryan MD
[2017-06-29 11:38] LABS: BASO % 0.4 % (0.0-2.0); EOS # 0.1 K/uL (0.0-0.7); EOS % 2.6 % (0.0-4.0); HEMOGLOBIN 12.4 g/dL (12.0-18.0); LYMPH # 0.5 K/uL (1.0-4.3); LYMPH % 11.2 % (20.0-40.0); MEAN CELL VOLUME 79.9 fL (80.0-94.0); MEAN CORPUSCULAR HEMOGLOBIN 27.4 pg (27.0-31.0); MEAN CORPUSCULAR HGB CONC 34.3 g/dL (33.0-37.0); MEAN PLATELET VOLUME 10.2 fL (7.2-11.7); MONO # 0.2 K/uL (0.0-0.8); MONO % 5.7 % (0.0-10.0); NEUT # 3.4 K/uL (1.8-7.0); NEUT % 80.1 % (50.0-75.0); NRBC % 0.1 % (0.0-2.0); PLATELET COUNT 141 K/uL (130-400); RBC 4.51 Mil/uL (4.40-5.90); WHITE BLOOD COUNT 4.3 K/uL (4.8-10.8)
[2017-06-29 11:53] LABS: ALBUMIN 2.9 g/dL (3.5-5.0); BILIRUBIN,DIRECT 0.6 mg/dL (0.0-0.4)
[2017-06-29 12:22] LABS: INTRACELLULAR PARASITE NEGATIVE (NEGATIVE)
[2017-06-29] MEDS: Docusate-Senna 50 mg-8.6 mg Tab PO SCH ×2 (12:37→17:19)
[2017-06-29 13:00] LABS: % CD4 (T HELPER CELL) 34 Percent (30-61); % CD8 (SUPPRESSOR T CELL) 37 Percent (12-42); ABSOLUTE CD4 CELLS 417 Cells/mcL (490-1740); ABSOLUTE CD8 CELLS 452 Cells/mcL (180-1170); ABSOLUTE LYMPHOCYTES 1212 Cells/mcL (850-3900); HELPER/SUPPRESSOR RATIO 0.92 Ratio (0.86-5.00)
--- NOTE | 2017-06-29 14:34 | MRI ---
PROCEDURE: MRI BRAIN WITHOUT CONTRAST HISTORY: persistant head ache and fever at night COMPARISON: Unenhanced head CT 05/10/2015. Prior brain MRI 05/09/2015. TECHNIQUE: Multiplanar, multisequence MR images of the brain were obtained without intravenous contrast enhancement. FINDINGS: HEMORRHAGE: None DWI: No evidence of an acute or early subacute infarction. BRAIN PARENCHYMA: There is a tiny sub cm area of diminished signal on gradient echo imaging at the medial left frontal bone/dura suggestive of either a inner table small exostosis or calcified meningioma. Its appearance is unchanged in the interval taking differences in MR processing into account. Diffuse cerebral atrophy chronic microangiopathy appear reiterated in remained age-appropriate. There is no cortical edema or mass-effect. Posterior fossa contents appear remarkable for chronic lacune at the left side of the stephane the more anterior than the smaller chronic lacune seen in the posterior mid stephane toward the left. VENTRICLES: Unremarkable. No hydrocephalus. CRANIUM: Unremarkable. ORBITS: Grossly unremarkable. PARANASAL SINUSES/MASTOIDS: Left-sided polyp or retention cyst again evident. VASCULAR SYSTEM: Skull base flow voids intact. OTHER FINDINGS: None. IMPRESSION: No acute intracranial findings identified in the interval. Age-appropriate age related neuro degenerative changes are reiterated. A tiny chronic interval lacune is seen the left stephane with prior more posterior lacune not quite as evident currently.
[2017-06-29 17:05] LABS: LYME IGM NEGATIVE (NEGATIVE)
[2017-06-29 17:38] LABS: LYME IGG NEGATIVE (NEGATIVE)
--- NOTE | 2017-06-29 21:58 | CP.PCM.PN ---
Subjective - Date & Time of Evaluation Date of Evaluation: 06/29/17 Time of Evaluation: 21:58 - Subjective Subjective: low grade temp 100.8-99.9 VSS. PER DAUGHTER PT C/O TIDWELL. RASH ON LOWER EXTREMITIES MORE CONFLUENT. LABS REVIEWED. CASE DISCUSSED WITH PMD DR. MONTANEZ. DC ALL ABX. OBSERVE FEVER CURVE. FUO W/U IN PROGRESS. PT BEING MONITORED CLOSELY. Objective - Vital Signs/Intake and Output Vital Signs (last 24 hours): Temp Pulse Resp BP Pulse Ox 97.2 F L 93 H 20 111/65 98 06/29/17 16:00 06/29/17 16:15 06/29/17 16:00 06/29/17 16:00 06/29/17 16:00 Intake and Output: 06/29/17 06/30/17 18:59 06:59 Intake Total 220 Balance 220 - Medications Medications: Current Medications Acetaminophen (Tylenol 325mg Tab) 650 mg PO Q6 PRN PRN Reason: Fever >100.4 F Last Admin: 06/29/17 10:14 Dose: 650 mg Albuterol/Ipratropium (Duoneb 3 Mg/0.5 Mg (3 Ml) Ud) 3 ml INH RQ6 [facility] Last Admin: 06/29/17 20:04 Dose: 3 ml Aspirin (Ecotrin) 81 mg PO DAILY [facility] Last Admin: 06/29/17 09:49 Dose: 81 mg Clopidogrel Bisulfate (Plavix) 75 mg PO DAILY [facility] Last Admin: 06/29/17 09:49 Dose: 75 mg Fenofibrate (Tricor) 48 mg PO DAILY [facility] Last Admin: 06/29/17 09:49 Dose: 48 mg Furosemide (Lasix) 40 mg IVP DAILY [facility] Guaifenesin/Dextromethorphan (Robitussin Dm) 5 ml PO Q4H PRN PRN Reason: Cough Last Admin: 06/25/17 22:39 Dose: 5 ml Doxycycline Hyclate 100 mg/ (Sodium Chloride) 100 mls @ 100 mls/hr IVPB Q12H [facility] PRN Reason: Protocol Last Admin: 06/29/17 04:48 Dose: 100 mls/hr Losartan Potassium (Cozaar) 50 mg PO DAILY [facility] Last Admin: 06/29/17 09:48 Dose: 50 mg Montelukast Sodium (Singulair) 10 mg PO HS [facility] Last Admin: 06/29/17 21:26 Dose: 10 mg Rosuvastatin Calcium (Crestor) 10 mg PO [facility] Last Admin: 06/29/17 21:26 Dose: 10 mg Senna/Docusate Sodium (Senokot S 50 Mg-8.6 Mg) 1 tab PO BID [facility] Last Admin: 06/29/17 17:19 Dose: 1 tab Topiramate (Topamax) 25 mg PO BID [facility] Last Admin: 06/29/17 17:19 Dose: 25 mg Trazodone HCl (Desyrel) 50 mg PO [facility] Last Admin: 06/29/17 21:26 Dose: 50 mg - Labs Labs: 06/29/17 11:32 06/28/17 16:37 PT 13.2 SECONDS (9.7-12.2) H 06/24/17 14:42 INR 1.2 06/24/17 14:42 APTT 28 SECONDS (21-34) 06/24/17 14:42 - Constitutional Appears: No Acute Distress - Head Exam Head Exam: NORMAL INSPECTION - Eye Exam Eye Exam: EOMI, PERRL - ENT Exam ENT Exam: Normal Oropharynx - Neck Exam Neck Exam: Normal Inspection - Respiratory Exam Respiratory Exam: Rhonchi (B/L) - Cardiovascular Exam Cardiovascular Exam: REGULAR RHYTHM, +S1, +S2 - GI/Abdominal Exam GI & Abdominal Exam: Soft, Normal Bowel Sounds. absent: Organomegaly - Extremities Exam Extremities Exam: Normal Capillary Refill. absent: Calf Tenderness, Pedal Edema - Back Exam Back Exam: absent: CVA tenderness (L), CVA tenderness (R) - Neurological Exam Neurological Exam: Awake, CN II-XII Intact, Oriented x3, Reflexes Normal - Psychiatric Exam Psychiatric exam: Normal Mood - Skin Skin Exam: Normal Color, Warm Assessment and Plan (1) Fever, unknown origin Assessment & Plan: W/U IN PROGRESS. TB W/U CERETAC SCAN WHOLE BODY. DC ALL ABX AND OBSERVE FEVER CURVE. FOR MRI BRAIN. NEURO EVAL -P ?LP IF TIDWELL AND FEVER PERSIST. ? DRUG FEVER. ? VIRAL SYNDROME. Status: Acute (2) Sepsis Assessment & Plan: F/U CULTURES. DC ALL ABX Status: Acute (3) Dizziness Status: Acute (4) Hypertension Status: Acute (5) COPD exacerbation Status: Acute (6) Ambulatory dysfunction Status: Acute (7) Thrombocytopenia Status: Acute (8) Allergic drug rash due to anti-infective agent Assessment & Plan: DC IV ZOSYN HOLD IV VIBRAMYCIN. Status: Acute
[2017-06-30] MEDS: Albuterol-Ipratrop 3 mg / 0.5 (3 ml) UD INH SCH ×4 (01:25→20:01)
[2017-06-30 07:48] LABS: BASO % 0.8 % (0.0-2.0); EOS # 0.1 K/uL (0.0-0.7); EOS % 2.9 % (0.0-4.0); HEMOGLOBIN 11.9 g/dL (12.0-18.0); LYMPH % 25.3 % (20.0-40.0); MEAN CELL VOLUME 79.3 fL (80.0-94.0); MEAN CORPUSCULAR HEMOGLOBIN 27.6 pg (27.0-31.0); MEAN CORPUSCULAR HGB CONC 34.8 g/dL (33.0-37.0); MEAN PLATELET VOLUME 9.6 fL (7.2-11.7); MONO # 0.3 K/uL (0.0-0.8); NEUT # 2.5 K/uL (1.8-7.0); NRBC % 0.2 % (0.0-2.0); RBC 4.33 Mil/uL (4.40-5.90); RED CELL DISTRIBUTION WIDTH 15.3 % (11.5-14.5); WHITE BLOOD COUNT 3.9 K/uL (4.8-10.8)
[2017-06-30 08:17] LABS: ALBUMIN 2.8 g/dL (3.5-5.0); ALT/SGPT 76 U/L (21-72); AST/SGOT 74 U/L (17-59); BLOOD UREA NITROGEN 15 mg/dL (9-20); CALCIUM 8.2 mg/dl (8.6-10.4); GFR AFRICAN-AMERICAN > 60; GFR NON-AFRICAN AMERICAN > 60
--- NOTE | 2017-06-30 08:38 | PN ---
DATE: 06/29/2017 SUBJECTIVE: Today, the patient is alert and oriented, is still complaining of some headache, and the patient denies any chest pain or shortness of breath or dizziness. PHYSICAL EXAMINATION: VITAL SIGNS: The patient has blood pressure of 111/65, pulse is 92, respirations 20, temperature is 97.2. HEAD: Normocephalic. NECK: Supple. LUNGS: Clear at this point. HEART: Regular rate and rhythm. ABDOMEN: Soft, obese, nontender. No palpable mass. EXTREMITIES: There is pitting edema of the area. The patient was found to have fever last night again. The patient was put on isolation since yesterday and the labs showed that the WBC is 4.3, hemoglobin 12.4, hematocrit 36, and platelet is 141. Chemistry showed that the sodium 142, potassium 4, chloride 103, bicarb is 28, BUN is 17. Creatinine 1.2 and glucose 109. Calcium 8.8. The procalcitonin is 0.09 and patient has ALT 90, alkaline phosphatase is 94, AST is 0.6, and albumin is 2.9. The patient had other tests done, that has shown that the CEA was 1.7, CA 19-9 was 7.9, and PSA was 0.102. Alkaline phosphatase was 56. Actually,the case was discussed and reviewed with HOLLIS Benito and also with Carol Ann Tripp MD, from [place]. PLAN: To continue to investigate the fever and MRI of the brain was ordered for today. Also, Neurology consult for possible lumbar puncture to rule out some kind of meningitis. So, the MRI of the brain has shown that the impression was that there was no acute intracranial finding identified in the interval, related neurodegenerative changes. A tiny is seen in the left stephane with prior posterior lacune . The plan is to do lumbar puncture, and also we are going to order a hepatitis profile, since the patient had liver enzymes that is elevated at this time. We will discontinue all antibiotics and also, we are going to discontinue lisinopril. Greg Ryan MD [facility] # [id number]
[2017-06-30 08:58] LABS: HEPATITIS B SURFACE AG Negative (NEGATIVE)
[2017-06-30 09:04] LABS: HEPATITIS A IGM NEGATIVE (NEGATIVE); HEPATITIS B CORE AB NEGATIVE (NEGATIVE)
[2017-06-30 09:15] LABS: HEPATITIS C ANTIBODY NEGATIVE (NEGATIVE)
[2017-06-30] MEDS ORDERED: Potassium Chloride 20 mEq ER Tab PO SCH (11:30)
[2017-06-30] MEDS: Docusate-Senna 50 mg-8.6 mg Tab PO SCH ×2 (12:24→18:11)
[2017-06-30] MEDS: Carbidopa/Levodopa 25/250 PO SCH (12:48)
[2017-06-30 13:47] LABS: INTRACELLULAR PARASITE NEGATIVE (NEGATIVE)
--- NOTE | 2017-06-30 16:00 | NM ---
PROCEDURE: Ceretec labeled white blood cell study HISTORY: Fever of unknown origin (FUO) COMPARISON: None TECHNIQUE: 19.2 mCi technetium 99 M Ceretec labeled white blood cells administered intravenously. Imaging performed at 2 and 20 hours per institutional protocol. FINDINGS: Expected uptake in the alimentary tract. Expected Accumulation of radionuclide in the liver and spleen Focal uptake at the site of the injection which may reflect the sequela of the injections/focal thrombophlebitis. IMPRESSION: No significant or acute findings to account for/ related to the clinical presentation. Additional benign and/or incidental findings described above.
[2017-06-30 19:13] LABS: TB ANTIGEN MINUS NIL <0.00 IU/mL
--- NOTE | 2017-06-30 19:17 | CP.PCM.PN ---
Subjective - Date & Time of Evaluation Date of Evaluation: 06/30/17 Time of Evaluation: 19:16 - Subjective Subjective: paged at 7:10PM to check PPD on patient placed on left forearm read as negative; no reaction whatsoever Warren Guerrero PGY2 Objective - Vital Signs/Intake and Output Vital Signs (last 24 hours): Temp Pulse Resp BP Pulse Ox 98.2 F 100 H 20 127/72 95 06/30/17 15:53 06/30/17 16:00 06/30/17 15:53 06/30/17 15:53 06/30/17 15:53 - Medications Medications: Current Medications Acetaminophen (Tylenol 325mg Tab) 650 mg PO Q6 PRN PRN Reason: Fever >100.4 F Last Admin: 06/30/17 12:46 Dose: 650 mg Albuterol/Ipratropium (Duoneb 3 Mg/0.5 Mg (3 Ml) Ud) 3 ml INH RQ6 [facility] Last Admin: 06/30/17 13:49 Dose: Not Given Aspirin (Ecotrin) 81 mg PO DAILY [facility] Last Admin: 06/30/17 12:24 Dose: 81 mg Carbidopa/Levodopa (Sinemet) 1 tab PO BID [facility] Last Admin: 06/30/17 12:48 Dose: Not Given Clopidogrel Bisulfate (Plavix) 75 mg PO DAILY [facility] Last Admin: 06/30/17 12:24 Dose: 75 mg Fenofibrate (Tricor) 48 mg PO DAILY [facility] Last Admin: 06/30/17 12:23 Dose: 48 mg Furosemide (Lasix) 40 mg IVP DAILY [facility] Last Admin: 06/30/17 12:25 Dose: 40 mg Guaifenesin/Dextromethorphan (Robitussin Dm) 5 ml PO Q4H PRN PRN Reason: Cough Last Admin: 06/25/17 22:39 Dose: 5 ml Doxycycline Hyclate 100 mg/ (Sodium Chloride) 100 mls @ 100 mls/hr IVPB Q12H [facility] PRN Reason: Protocol Last Admin: 06/29/17 04:48 Dose: 100 mls/hr Losartan Potassium (Cozaar) 50 mg PO DAILY [facility] Last Admin: 06/30/17 12:25 Dose: 50 mg Montelukast Sodium (Singulair) 10 mg PO HS [facility] Last Admin: 06/29/17 21:26 Dose: 10 mg Potassium Chloride (K-Dur 20 Meq Er Tab) 20 meq PO DAILY [facility] Stop: 07/03/17 10:01 Rosuvastatin Calcium (Crestor) 10 mg PO HS [facility] Last Admin: 06/29/17 21:26 Dose: 10 mg Senna/Docusate Sodium (Senokot S 50 Mg-8.6 Mg) 1 tab PO BID [facility] Last Admin: 06/30/17 18:11 Dose: 1 tab Topiramate (Topamax) 25 mg PO BID [facility] Last Admin: 06/30/17 18:11 Dose: 25 mg Trazodone HCl (Desyrel) 50 mg PO [facility] Last Admin: 06/29/17 21:26 Dose: 50 mg - Labs Labs: 06/30/17 07:39 06/30/17 07:39 PT 13.2 SECONDS (9.7-12.2) H 06/24/17 14:42 INR 1.2 06/24/17 14:42 APTT 28 SECONDS (21-34) 06/24/17 14:42
--- NOTE | 2017-06-30 20:08 | CP.PCM.PN ---
Subjective - Date & Time of Evaluation Date of Evaluation: 06/30/17 Time of Evaluation: 20:08 - Subjective Subjective: CHIEF COMPLAINTS TODAY : febrile 102.8 vs BP 107/50. C/O TIDWELL/ AND PRESSURE. DIZZINESS RASH FAINT-improving. ROS. HEENT : N. Resp : No SOB wheezing, cough Cardio : No CP, PND orthopnea GI : No abd. 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 Musculoskel : N Ext. : Pedal pulses intact, no edema or calf pain Derm : N Psych : N. PE. Pt. is alert awake in no distress. V.S As noted in the chart Head ,ear nose,throat and eyes : Normal. Neck : Supple with normal carotids.-VE BRUIT Lung; DIMINISHED BREATH SOUNDS BASES Heart : S1 & S2 normal . . No murmur. S4 + Abd : Soft non tender with normal bowel sounds. Neuro : Moves all ext. with no localized deficit. Ext : No edema with intact pulses. Neg. calf tenderness Derm : GENERALIZED RASH / DRUG RASH IMPROVING , NO decubitus ulcer. Radiology/Labs wbc 3.7 PLATELETS IMPROVING DUPLEX VENOUS NEGATIVE. RIGHT AND LEFT LOWER EXTREMITY. CERETAC SCAN WHOLE BODY NEGATIVE. BRAIN MRI WITHOUT CONTRAST 06/29/17 OLD LACUNAE MELISSA/MID MELISSA QFT gOLD tb TEST -VE PPD -VE LDH HIGH 822 CRP HIGH PRO-CALCITONIN 0.09 LOW lYME SEROLOGY NEGATIVE. BLOOD INTERCELLULAR PARASITES NEGATIVE 2D ECHO NORMAL Objective - Vital Signs/Intake and Output Vital Signs (last 24 hours): Temp Pulse Resp BP Pulse Ox 98.2 F 100 H 20 127/72 95 06/30/17 15:53 06/30/17 16:00 06/30/17 15:53 06/30/17 15:53 06/30/17 15:53 - Medications Medications: Current Medications Acetaminophen (Tylenol 325mg Tab) 650 mg PO Q6 PRN PRN Reason: Fever >100.4 F Last Admin: 06/30/17 12:46 Dose: 650 mg Albuterol/Ipratropium (Duoneb 3 Mg/0.5 Mg (3 Ml) Ud) 3 ml INH RQ6 [facility] Last Admin: 06/30/17 20:01 Dose: 3 ml Aspirin (Ecotrin) 81 mg PO DAILY [facility] Last Admin: 06/30/17 12:24 Dose: 81 mg Carbidopa/Levodopa (Sinemet) 1 tab PO BID [facility] Last Admin: 06/30/17 12:48 Dose: Not Given Clopidogrel Bisulfate (Plavix) 75 mg PO DAILY [facility] Last Admin: 06/30/17 12:24 Dose: 75 mg Fenofibrate (Tricor) 48 mg PO DAILY [facility] Last Admin: 06/30/17 12:23 Dose: 48 mg Furosemide (Lasix) 40 mg IVP DAILY [facility] Last Admin: 06/30/17 12:25 Dose: 40 mg Guaifenesin/Dextromethorphan (Robitussin Dm) 5 ml PO Q4H PRN PRN Reason: Cough Last Admin: 06/25/17 22:39 Dose: 5 ml Doxycycline Hyclate 100 mg/ (Sodium Chloride) 100 mls @ 100 mls/hr IVPB Q12H [facility] PRN Reason: Protocol Last Admin: 06/29/17 04:48 Dose: 100 mls/hr Losartan Potassium (Cozaar) 50 mg PO DAILY [facility] Last Admin: 06/30/17 12:25 Dose: 50 mg Montelukast Sodium (Singulair) 10 mg PO HS [facility] Last Admin: 06/29/17 21:26 Dose: 10 mg Potassium Chloride (K-Dur 20 Meq Er Tab) 20 meq PO DAILY [facility] Stop: 07/03/17 10:01 Rosuvastatin Calcium (Crestor) 10 mg PO HS [facility] Last Admin: 06/29/17 21:26 Dose: 10 mg Senna/Docusate Sodium (Senokot S 50 Mg-8.6 Mg) 1 tab PO BID [facility] Last Admin: 06/30/17 18:11 Dose: 1 tab Topiramate (Topamax) 25 mg PO BID [facility] Last Admin: 06/30/17 18:11 Dose: 25 mg Trazodone HCl (Desyrel) 50 mg PO HS [facility] Last Admin: 06/29/17 21:26 Dose: 50 mg - Labs Labs: 06/30/17 07:39 06/30/17 07:39 PT 13.2 SECONDS (9.7-12.2) H 06/24/17 14:42 INR 1.2 06/24/17 14:42 APTT 28 SECONDS (21-34) 06/24/17 14:42 Assessment and Plan (1) Fever, unknown origin Assessment & Plan: SOURCE OF FEVER NOT CLEAR ? VIRAL SYNDROME ? DRUG FEVER ? SHOWPLACE MANAGER ETIOLOGY CAVERNOUS SINUS THROMBOSIS /SUBCLINICAL SEIZURES R/O OCCULT LYMPHOMA ( MENINGEAL VS SYSTEMIC ) SOURCE OF TIDWELL NOT CLEAR OBSERVE OFF ABX . CONSIDER MRA- VENOUS ANGIOGRPHY R/O SINUS THROMBOSIS IF OK WITH NEUROLOGY CASE DISCUSSED WITH PMD.DR. FUNK Status: Acute (2) Sepsis Status: Acute (3) Dizziness Status: Acute (4) Hypertension Status: Acute (5) COPD exacerbation Status: Acute (6) Ambulatory dysfunction Status: Acute (7) Thrombocytopenia Status: Acute (8) Allergic drug rash due to anti-infective agent Status: Acute
--- NOTE | 2017-07-01 00:13 | PN ---
DATE: 06/30/2017 SUBJECTIVE: Today, the patient is alert and awake. Denies any shortness of breath, at this time, no chest pain, however, the patient has temperature of 102 last night, and the patient is complaining of headache. PHYSICAL EXAMINATION: VITAL SIGNS: The patient has blood pressure of 127/72, pulse is 80, respirations 20, temperature 98.2. NECK: Supple. HEENT: Head is normocephalic, atraumatic. LUNGS: Lungs are clear now. HEART: Regular rate and rhythm. Positive murmur. ABDOMEN: Soft, nontender. EXTREMITIES: No palpable mass in extremity. There is ankle edema. SKIN: There is slight pinkish scattered rash to the legs. PLAN: All the antibiotics were discontinued, and a WBC Ceretec scan ordered and ordered also blood culture, if temperature 101.5, and Topamax is ordered. The case was reviewed with Dr. Carol Ann Tripp, Infectious Disease, and also with HOLLIS Benito, nurse practitioner. Greg Ryan MD
[2017-07-01] MEDS: Albuterol-Ipratrop 3 mg / 0.5 (3 ml) UD INH SCH ×4 (01:21→19:57)
--- NOTE | 2017-07-01 09:41 | CARD ---
APPROVED REPORT EXAM: Two-dimensional and M-mode echocardiogram with Doppler and color Doppler. Other Information Quality : GoodRhythm : INDICATION CVA/TIA Atrial Fibrillation Chest Pain 2D DIMENSIONS IVSd1.0 (0.7-1.1cm)LVDd4.3 (3.9-5.9cm) PWd0.9 (0.7-1.1cm)LVDs2.3 (2.5-4.0cm) FS (%) 45.5 %LVEF (%)70.0 (>50%) M-Mode DIMENSIONS Left Atrium (MM)3.95 (2.5-4.0cm)Aortic Root3.08 (2.2-3.7cm) Aortic Cusp Exc.2.00 (1.5-2.0cm) Mitral Valve MV E Elptulvv10.1cm/sMV A Trbarzmo446.8cm/sE/A ratio0.5 TDI E/Lateral E'0.0E/Medial E'0.0 Tricuspid Valve TR Peak Plzipgta854yh/sTR Peak Gr.35mmHg <Conclusion> Left ventricle: thickness: normal; size: normal; overall ejection fraction: 70%: diastolic filling pressures: elevated Mitral valve: annulus: normal: leaflets: normal: excursion: normal; no significant trans-mitral gradient: no significant incompetence: left atrium: normal Aortic valve: leaflets: normal: excursion: normal; no significant trans-aortic gradient: trace incompetence: aortic root: normal Right sided Structures: Pulmonary valve: normal; no significant incompetence; Tricuspid valve: normal; no significant incompetence: Intra-cardiac hemodynamics: pulmonary systolic pressures: 36mmhg; central venous pressures: normal No pericardial effusion
[2017-07-01] MEDS: Docusate-Senna 50 mg-8.6 mg Tab PO SCH ×2 (10:15→18:05)
[2017-07-01] MEDS: Carbidopa/Levodopa 25/250 PO SCH ×2 (10:32→18:06)
[2017-07-01] MEDS: Potassium Chloride 20 mEq ER Tab PO SCH (11:45)
[2017-07-01] MEDS ORDERED: Iodixanol 320 MG/ML 100 ML BOTTLE IV ONE (12:59)
--- NOTE | 2017-07-01 14:16 | CT ---
PROCEDURE: CT Abdomen and Pelvis with contrast HISTORY: r/o malignancy. Sepsis. COMPARISON: 08/15/2012 TECHNIQUE: Contrast dose: 100 mL Visipaque 320 Radiation dose: Total exam DLP = 1019.24 mGy-cm. This CT exam was performed using one or more of the following dose reduction techniques: Automated exposure control, adjustment of the mA and/or kV according to patient size, and/or use of iterative reconstruction technique. FINDINGS: LOWER THORAX: Unremarkable. LIVER: Unremarkable. No gross lesion or ductal dilatation. GALLBLADDER AND BILE DUCTS: Unremarkable. PANCREAS: Unremarkable. No gross lesion or ductal dilatation. SPLEEN: Unremarkable. ADRENALS: Unremarkable. No mass. KIDNEYS AND URETERS: Right upper pole low-density renal cortical cyst, 10 mm. Previously, this measured 8 mm. Left upper pole intermediate attenuation mass, 2.7 cm. This measures 40 Hounsfield units. Previously, this measured 1.9 cm. Further evaluation with ultrasound examination is advised. No other renal mass. No calculus or hydronephrosis. No evidence of pyelonephritis. VASCULATURE: Unremarkable. No aortic aneurysm. BOWEL: Unremarkable. No obstruction. No gross mural thickening. APPENDIX: Not identified. No secondary findings of appendicitis. PERITONEUM: Unremarkable. No free fluid. No free air. LYMPH NODES: Unremarkable. No enlarged lymph nodes. BLADDER: Unremarkable. REPRODUCTIVE: Radiation seed implants in prostate bed. Small prostate. BONES: No acute fracture. OTHER FINDINGS: None. IMPRESSION: No acute abnormality. No evidence of malignancy. There is an enlarging intermediate attenuation mass in the upper pole left kidney, possibly complicated cyst. Evaluation with ultrasound examination is suggested. Minimally enlarged low-density right upper pole renal cortical mass, likely cyst. No additional abnormality.
[2017-07-01 16:18] VITALS: O2SAT 97
--- NOTE | 2017-07-01 20:44 | CP.PCM.PN ---
Subjective - Date & Time of Evaluation Date of Evaluation: 07/01/17 Time of Evaluation: 20:42 - Subjective Subjective: was paged at 8:38PM to recheck the PPD that was read as negative yesterday at 48hours according to the CDC 2016 TST testing needs to be completed between 48 hours and 72 hours of placement re-checking the site is not necessary as it was checked at 48 hours with no reaction Warren Aldana PGY2 Objective - Vital Signs/Intake and Output Vital Signs (last 24 hours): Temp Pulse Resp BP Pulse Ox 98.2 F 88 20 108/64 97 07/01/17 15:00 07/01/17 15:00 07/01/17 15:00 07/01/17 15:00 07/01/17 15:00 Intake and Output: 07/01/17 07/02/17 18:59 06:59 Intake Total 480 Balance 480 - Medications Medications: Current Medications Acetaminophen (Tylenol 325mg Tab) 650 mg PO Q6 PRN PRN Reason: Fever >100.4 F Last Admin: 07/01/17 04:32 Dose: 650 mg Albuterol/Ipratropium (Duoneb 3 Mg/0.5 Mg (3 Ml) Ud) 3 ml INH RQ6 [facility] Last Admin: 07/01/17 19:57 Dose: 3 ml Aspirin (Ecotrin) 81 mg PO DAILY [facility] Last Admin: 07/01/17 10:15 Dose: 81 mg Carbidopa/Levodopa (Sinemet) 1 tab PO BID [facility] Last Admin: 07/01/17 18:06 Dose: Not Given Clopidogrel Bisulfate (Plavix) 75 mg PO DAILY [facility] Last Admin: 07/01/17 10:15 Dose: 75 mg Fenofibrate (Tricor) 48 mg PO DAILY [facility] Last Admin: 07/01/17 10:31 Dose: 48 mg Furosemide (Lasix) 40 mg IVP DAILY [facility] Last Admin: 07/01/17 10:15 Dose: 40 mg Guaifenesin/Dextromethorphan (Robitussin Dm) 5 ml PO Q4H PRN PRN Reason: Cough Last Admin: 06/25/17 22:39 Dose: 5 ml Doxycycline Hyclate 100 mg/ (Sodium Chloride) 100 mls @ 100 mls/hr IVPB Q12H IMEL[facility] PRN Reason: Protocol Last Admin: 06/29/17 04:48 Dose: 100 mls/hr Losartan Potassium (Cozaar) 50 mg PO DAILY [facility] Last Admin: 07/01/17 10:15 Dose: 50 mg Montelukast Sodium (Singulair) 10 mg PO HS [facility] Last Admin: 06/30/17 21:06 Dose: 10 mg Potassium Chloride (K-Dur 20 Meq Er Tab) 20 meq PO DAILY [facility] Stop: 07/03/17 10:01 Last Admin: 07/01/17 11:45 Dose: 20 meq Rosuvastatin Calcium (Crestor) 10 mg PO HS [facility] Last Admin: 06/30/17 21:06 Dose: 10 mg Senna/Docusate Sodium (Senokot S 50 Mg-8.6 Mg) 1 tab PO BID [facility] Last Admin: 07/01/17 18:05 Dose: 1 tab Topiramate (Topamax) 25 mg PO BID [facility] Last Admin: 07/01/17 18:05 Dose: 25 mg Trazodone HCl (Desyrel) 50 mg PO [facility] Last Admin: 06/30/17 21:06 Dose: 50 mg - Labs Labs: 06/30/17 07:39 06/30/17 07:39 PT 13.2 SECONDS (9.7-12.2) H 06/24/17 14:42 INR 1.2 06/24/17 14:42 APTT 28 SECONDS (21-34) 06/24/17 14:42
--- NOTE | 2017-07-01 21:12 | CP.PCM.PN ---
Subjective - Date & Time of Evaluation Date of Evaluation: 07/01/17 Time of Evaluation: 21:12 - Subjective Subjective: FEBRILE ,VSS RASH FADING AWAY C/O TIDWELL PER DAUGHTER . WENT FOR CT ABDOMEN/PELVIS WITH IV CONTRAST TODAY. OFF ABX . REPEAT CULTURES ORDERED. NEUROLOGY EVAL -P Objective - Vital Signs/Intake and Output Vital Signs (last 24 hours): Temp Pulse Resp BP Pulse Ox 98.2 F 88 20 108/64 97 07/01/17 15:00 07/01/17 15:00 07/01/17 15:00 07/01/17 15:00 07/01/17 15:00 Intake and Output: 07/01/17 07/02/17 18:59 06:59 Intake Total 480 Balance 480 - Medications Medications: Current Medications Acetaminophen (Tylenol 325mg Tab) 650 mg PO Q6 PRN PRN Reason: Fever >100.4 F Last Admin: 07/01/17 04:32 Dose: 650 mg Albuterol/Ipratropium (Duoneb 3 Mg/0.5 Mg (3 Ml) Ud) 3 ml INH RQ6 [facility] Last Admin: 07/01/17 19:57 Dose: 3 ml Aspirin (Ecotrin) 81 mg PO DAILY [facility] Last Admin: 07/01/17 10:15 Dose: 81 mg Carbidopa/Levodopa (Sinemet) 1 tab PO BID [facility] Last Admin: 07/01/17 18:06 Dose: Not Given Clopidogrel Bisulfate (Plavix) 75 mg PO DAILY [facility] Last Admin: 07/01/17 10:15 Dose: 75 mg Fenofibrate (Tricor) 48 mg PO DAILY [facility] Last Admin: 07/01/17 10:31 Dose: 48 mg Furosemide (Lasix) 40 mg IVP DAILY [facility] Last Admin: 07/01/17 10:15 Dose: 40 mg Guaifenesin/Dextromethorphan (Robitussin Dm) 5 ml PO Q4H PRN PRN Reason: Cough Last Admin: 06/25/17 22:39 Dose: 5 ml Doxycycline Hyclate 100 mg/ (Sodium Chloride) 100 mls @ 100 mls/hr IVPB Q12H [facility] PRN Reason: Protocol Last Admin: 06/29/17 04:48 Dose: 100 mls/hr Losartan Potassium (Cozaar) 50 mg PO DAILY [facility] Last Admin: 07/01/17 10:15 Dose: 50 mg Montelukast Sodium (Singulair) 10 mg PO [facility] Last Admin: 07/01/17 21:01 Dose: 10 mg Potassium Chloride (K-Dur 20 Meq Er Tab) 20 meq PO DAILY [facility] Stop: 07/03/17 10:01 Last Admin: 07/01/17 11:45 Dose: 20 meq Rosuvastatin Calcium (Crestor) 10 mg PO [facility] Last Admin: 07/01/17 21:01 Dose: 10 mg Senna/Docusate Sodium (Senokot S 50 Mg-8.6 Mg) 1 tab PO BID [facility] Last Admin: 07/01/17 18:05 Dose: 1 tab Topiramate (Topamax) 25 mg PO BID [facility] Last Admin: 07/01/17 18:05 Dose: 25 mg Trazodone HCl (Desyrel) 50 mg PO [facility] Last Admin: 07/01/17 21:02 Dose: 50 mg - Labs Labs: 06/30/17 07:39 06/30/17 07:39 PT 13.2 SECONDS (9.7-12.2) H 06/24/17 14:42 INR 1.2 06/24/17 14:42 APTT 28 SECONDS (21-34) 06/24/17 14:42 - Constitutional Appears: No Acute Distress - Head Exam Head Exam: NORMAL INSPECTION - Eye Exam Eye Exam: EOMI, PERRL - ENT Exam ENT Exam: Normal Oropharynx - Neck Exam Neck Exam: Normal Inspection - Respiratory Exam Respiratory Exam: Decreased Breath Sounds, NORMAL BREATHING PATTERN - Cardiovascular Exam Cardiovascular Exam: REGULAR RHYTHM, +S1, +S2 - GI/Abdominal Exam GI & Abdominal Exam: Soft, Normal Bowel Sounds. absent: Organomegaly - Extremities Exam Extremities Exam: Pedal Edema (1+). absent: Calf Tenderness - Neurological Exam Neurological Exam: Awake, CN II-XII Intact, Oriented x3 - Skin Skin Exam: Normal Color, Rash (IMPROVING), Warm Assessment and Plan (1) Fever, unknown origin Assessment & Plan: SOURCE OF FEVER NOT CLEAR ? VIRAL SYNDROME ? DRUG FEVER ? CHIP TESTER ETIOLOGY CAVERNOUS SINUS THROMBOSIS /SUBCLINICAL SEIZURES R/O OCCULT LYMPHOMA ( MENINGEAL VS SYSTEMIC ) SOURCE OF TIDWELL NOT CLEAR OBSERVE OFF ABX . CONSIDER MRA- VENOUS ANGIOGRPHY R/O SINUS THROMBOSIS IF OK WITH NEUROLOGY Status: Acute (2) Sepsis Assessment & Plan: SERUM IMMUNOGLOBULINS IGG. IGM,IGE. IGA, IGD. WNV iGm/iGg SEROLOGY ARBOVIRAL SEROLOGY. ? LP IF NO CONTRAINDICATION. WE WILL DISCUSS WITH NEUROLOGY. Status: Acute (3) Dizziness Status: Acute (4) Hypertension Status: Acute (5) COPD exacerbation Status: Acute (6) Ambulatory dysfunction Status: Acute (7) Thrombocytopenia Status: Acute (8) Allergic drug rash due to anti-infective agent Status: Acute
--- NOTE | 2017-07-01 23:03 | US ---
EXAM: US Retroperitoneal Complete, Renal EXAM DATE/TIME: 07/01/2017 9:09 PM CLINICAL HISTORY: 86 years old, male; Abnormal findings; Abnormal radiologic finding of the abdomen; Radiologic exam and body structure: Renal; Additional info: Left kidney complicated cyst versus mass TECHNIQUE: Real-time ultrasound of the retroperitoneum (complete) with image documentation. COMPARISON: CT abdomen done earlier on the same day, at 1:38 PM FINDINGS: Right kidney: Contains a small 9 x 8 mm anechoic lesion, located in the upper pole, most compatible with a cyst. Otherwise within normal limits in appearance. Measures 10 cm in length. No evidence of hydronephrosis. Left kidney: Contains a 2.6 x 2.4 x 2.0 cm lesion. This has ultrasound features most compatible with a cyst. it appears anechoic and demonstrates through transmission. It does not appear significantly complex. It does not demonstrate thick internal septations, mural nodules, or increased vascularity. Otherwise within normal limits in appearance. Measures 11.5 cm in length. No evidence of hydronephrosis. Bladder: Not specifically imaged. IMPRESSION: 2.6 cm left renal cyst. This does not appear significantly complex. Small right renal cyst. Otherwise negative exam.
--- NOTE | 2017-07-02 01:04 | PN ---
DATE: 07/01/2017 SUBJECTIVE: Today, the patient is alert and awake. Denies any shortness of breath. No chest pain. No dizziness. No palpitation, however, the patient is complaining of some slight headache on and off. PHYSICAL EXAMINATION: VITAL SIGNS: The patient has blood pressure of 108/64, pulse 88, respirations 20, temperature 98.2. HEENT: Head is normocephalic. NECK: Supple. No JVD. LUNGS: Clear. HEART: Regular rate and rhythm. Positive murmur. ABDOMEN: Soft, obese, and nontender. No palpable mass. EXTREMITIES: There is no edema. NEUROLOGIC: There is a tremor of the upper extremities. LABORATORY DATA: The patient's blood work showed that WBC is 3.9, hemoglobin 11.9, hematocrit 34.3, and platelet is 162. Chemistry showed that the sodium is 142, potassium 3.4, chloride is 106, BUN 16, creatinine 1.1, AST 74, ALT 76, alkaline phosphatase is 46, albumin 5.7, and globulin 2.8. ASSESSMENT AND PLAN: The patient had MRI of the brain and also was discussed with Dr. Carol Ann Tripp and has suggested to have neuro consult and also have a CT of abdomen and pelvis which will be done today and so antibiotic was also discontinued. Greg Ryan MD
[2017-07-02] MEDS: Albuterol-Ipratrop 3 mg / 0.5 (3 ml) UD INH SCH ×2 (01:54→07:40)
[2017-07-02 07:35] LABS: BASO % 0.7 % (0.0-2.0); EOS # 0.1 K/uL (0.0-0.7); EOS % 2.8 % (0.0-4.0); HEMOGLOBIN 11.7 g/dL (12.0-18.0); LYMPH # 0.8 K/uL (1.0-4.3); LYMPH % 18.1 % (20.0-40.0); MEAN CELL VOLUME 79.8 fL (80.0-94.0); MEAN CORPUSCULAR HEMOGLOBIN 27.3 pg (27.0-31.0); MEAN CORPUSCULAR HGB CONC 34.2 g/dL (33.0-37.0); MEAN PLATELET VOLUME 9.3 fL (7.2-11.7); MONO # 0.3 K/uL (0.0-0.8); MONO % 7.2 % (0.0-10.0); NEUT % 71.2 % (50.0-75.0); RBC 4.29 Mil/uL (4.40-5.90); RED CELL DISTRIBUTION WIDTH 15.3 % (11.5-14.5); WHITE BLOOD COUNT 4.2 K/uL (4.8-10.8)
[2017-07-02 07:53] LABS: BLOOD UREA NITROGEN 15 mg/dL (9-20); CALCIUM 8.1 mg/dl (8.6-10.4); GFR AFRICAN-AMERICAN > 60; GFR NON-AFRICAN AMERICAN > 60
[2017-07-02 07:55] VITALS: BP 118/63; RESP 20; TEMP 98.7
[2017-07-02 08:00] LABS: IMMUNOGLOBULIN A 209.5 mg/dL (70.0-400.0); IMMUNOGLOBULIN G 729.5 mg/dL (700.0-1600.0); IMMUNOGLOBULIN M 99.7 mg/dL (40.0-230.0)
[2017-07-02] MEDS: Potassium Chloride 20 mEq ER Tab PO SCH (09:55)
[2017-07-02] MEDS: Docusate-Senna 50 mg-8.6 mg Tab PO SCH (09:56)
[2017-07-02] MEDS: Carbidopa/Levodopa 25/250 PO SCH (09:57)
[2017-07-02] MEDS: guaiFENesin DM 100 mg-10 mg/5 ml UD PO PRN (10:01)
--- NOTE | 2017-07-02 11:35 | CP.PCM.PN ---
Subjective - Date & Time of Evaluation Date of Evaluation: 07/02/17 Time of Evaluation: 11:35 - Subjective Subjective: PT SEEN BY MYSELF AND DR. FUNK DURING ROUNDS. DIAGNOSTICS, LABS AND VITALS REVIEWED WITH DR. FUNK. PT CLEARED FOR D/C HOME TODAY WITH NO ABX. PER DR. FUNK, PT TO CONTINUE TYLENOL BID UNTIL HE IS SEEN IN DR. FUNK'S OFFICE. PT TO F/U WITH DR. FUNK NEXT WEDNESDAY (07/08/17). MICROBIOLOG[facility] LABS THAT WERE ORDERED B YDR. TYLER WERE DRAWN THIS MORNING, AND DR. FUNK WILL DISCUSS RESULTS WITH THE PT NEXT WEEK; ABX MAY BE RESUMED IF NEEDED AT THAT TIME. WILL ALSO RX KCL FOR 5 DAYS FOR HYPOKALEMIA. I DISCUSSED THIS PLAN WITH DR. TYLER AND SHE IS IN AGREEMENT. DR. TYLER ALSO REQUESTING THAT [facility] HOLD PT'S LAST BLOOD CULTURES (DRAWN ON 07/01/17) BE HELD FOR 3 WEEKS--I CALLED [facility] AND NOTIFIED THEM OF THIS REQUEST; I SPOKE WITH MALINDA FLANAGAN IN [facility] ([id number]), WHO TOOK PT'S INFORMATION AND MADE A NOTE OF DR. TYLER'S REQUEST. I DISCUSSED ALL D/C , F/U, AND MED INFORMATION WITH THE PT AND FAMILY; THEY VERBALIZE UNDERSTANDING. NO FURTHER ORDERS. - SEGUIMIENTO CON EL DR. FUNK EN LA OFICINA EL JUEVES, 10 DE 2017 -- - LLAME A LA OFICINA HOY PARA HACER MOOSE HORA DE LA [place]. - KOLBY ESTA VISITA, DR. FUNK DISCUTIR CON USTED LAB RESULTADOS DEL HOSPITAL QUE HANG 3-4 STACK PARA SER RESULTADO. -CONTINUAR LOS MEDICAMENTOS CASEROS ADAM HABITUALMENTE. -PER DR. FUNK: BARNEY DE ALLIE TOPAMAX. TOME TYLENOL 650 MG (2 COMPRIMIDOS DE 325 MG) DOS VECES AL DA HASTA QUE VE EL DR. FUNK (POR LA MAANA Y POR LA NOCHE). O PUEDES ALLIE TYLENOL EXTRA STRENGTH (500 MG) MOOSE PASTILLAS DOS VECES AL DIPIKA. TOME SUPLEMENTOS DE POTASIO ADAM SE PRESCRIBE MOOSE VEZ AL DA KOLBY 5 STACK. -SI TIENE ALGUNA OTRA PREGUNTA, PNGASE EN CONTACTO CON EL DR. FUNK. -FOLLOW UP WITH DR. FUNK IN THE OFFICE ON SATURDAY, JULY 08, 2017---CALL THE OFFICE TODAY TO MAKE AN APPOINTMENT TIME. -DURING THIS VISIT, DR. FUNK WILL DISCUSS WITH YOU LAB RESULTS FROM THE HOSPITAL THAT TAKE 3-4 DAYS TO BE RESULTED. -CONTINUE HOME MEDICATIONS USUAL. -PER DR. FUNK: STOP TAKING TOPAMAX. TAKE TYLENOL 650 MG (2 TABLETS OF 325 MG) TWICE A DAY UNTIL YOU SEE DR. FUNK (MORNING AND EVENING). OR TYLENOL EXTRA STRENGTH (500 MG) TWICE A DAY. TAKE POTASSIUM SUPPLEMENTS PRESCRIBED ONCE A DAY FOR 5 DAYS. -IF YOU HAVE ANY OTHER QUESTIONS, CONTACT DR. FUNK. Objective - Vital Signs/Intake and Output Vital Signs (last 24 hours): Temp Pulse Resp BP Pulse Ox 98.7 F 90 20 118/63 97 07/02/17 07:00 07/02/17 07:00 07/02/17 07:00 07/02/17 09:56 07/02/17 07:00 Intake and Output: 07/02/17 07/02/17 06:59 18:59 Intake Total 320 Balance 320 - Medications Medications: Current Medications Acetaminophen (Tylenol 325mg Tab) 650 mg PO Q6 PRN PRN Reason: Fever >100.4 F Last Admin: 07/02/17 09:54 Dose: 650 mg Albuterol/Ipratropium (Duoneb 3 Mg/0.5 Mg (3 Ml) Ud) 3 ml INH RQ6 [facility] Last Admin: 07/02/17 07:40 Dose: 3 ml Aspirin (Ecotrin) 81 mg PO DAILY [facility] Last Admin: 07/02/17 09:56 Dose: 81 mg Carbidopa/Levodopa (Sinemet) 1 tab PO BID [facility] Last Admin: 07/02/17 09:57 Dose: Not Given Clopidogrel Bisulfate (Plavix) 75 mg PO DAILY [facility] Last Admin: 07/02/17 09:55 Dose: 75 mg Fenofibrate (Tricor) 48 mg PO DAILY [facility] Last Admin: 07/02/17 09:55 Dose: 48 mg Furosemide (Lasix) 40 mg IVP DAILY [facility] Last Admin: 07/02/17 09:56 Dose: 40 mg Guaifenesin/Dextromethorphan (Robitussin Dm) 5 ml PO Q4H PRN PRN Reason: Cough Last Admin: 07/02/17 10:01 Dose: 5 ml Doxycycline Hyclate 100 mg/ (Sodium Chloride) 100 mls @ 100 mls/hr IVPB Q12H [facility] PRN Reason: Protocol Last Admin: 06/29/17 04:48 Dose: 100 mls/hr Losartan Potassium (Cozaar) 50 mg PO DAILY [facility] Last Admin: 07/02/17 09:55 Dose: 50 mg Montelukast Sodium (Singulair) 10 mg PO HS [facility] Last Admin: 07/01/17 21:01 Dose: 10 mg Potassium Chloride (K-Dur 20 Meq Er Tab) 20 meq PO DAILY [facility] Stop: 07/03/17 10:01 Last Admin: 07/02/17 09:55 Dose: 20 meq Rosuvastatin Calcium (Crestor) 10 mg PO HS [facility] Last Admin: 07/01/17 21:01 Dose: 10 mg Senna/Docusate Sodium (Senokot S 50 Mg-8.6 Mg) 1 tab PO BID [facility] Last Admin: 07/02/17 09:56 Dose: 1 tab Topiramate (Topamax) 25 mg PO BID [facility] Last Admin: 07/02/17 09:56 Dose: 25 mg Trazodone HCl (Desyrel) 50 mg PO HS [facility] Last Admin: 07/01/17 21:02 Dose: 50 mg - Labs Labs: 07/02/17 07:18 07/02/17 07:18 PT 13.2 SECONDS (9.7-12.2) H 06/24/17 14:42 INR 1.2 06/24/17 14:42 APTT 28 SECONDS (21-34) 06/24/17 14:42
[2017-07-02 13:40] VITALS: PULSE 100
--- NOTE | 2017-07-03 00:11 | PN ---
DATE: 07/02/2017 SUBJECTIVE: Today, the patient is alert and awake. Denied any shortness of breath. No chest pain. No palpitation, no headache, and good bowel movement, no constipation. The patient also has no fever for the past 24 hours. PHYSICAL EXAMINATION: VITAL SIGNS: Has blood pressure of 120/70, pulse rate of 70, respirations 18 and temperature 97.8. NECK: Supple. No JVD. LUNGS: Clear. HEART: Regular rate and rhythm. ABDOMEN: Soft, obese, nontender. Positive bowel sounds. EXTREMITIES: There is no edema and the rash is no more present. LABORATORY DATA: The had blood work was within normal limits except the potassium was 3.3. PLAN: We are going to discharge the patient home. The patient will have medications and we will still not give any antibiotic and we are going lab ordered by Dr. Tripp. The case also was discussed with Dr. Carol Ann Tripp who agreed for discharge and also with Ariana Marrero, the nurse practitioner. Greg Ryan MD
[2017-07-06 14:35] LABS: WNV AB IGM 0.02
[2017-07-07 18:35] LABS: W.EQUINE ENCEPH.VIRUS IGM <1:16
[2017-07-08 19:21] LABS: ST.LOUIS ENCEPH VIRUS IGG 1:32; ST.LOUIS ENCEPH VIRUS IGM <1:16
--- NOTE | 2017-07-21 18:03 | DS ---
HISTORY OF PRESENT ILLNESS: This patient is an 86-year-old male with history of Parkinson and prostate CA who got admitted. The patient came to the emergency room because the patient was found to have a fever of 103 and also the patient got chills. The patient was also complaining of congestive cough. The patient has a past medical history as mentioned of asthma, COPD, hypertension, Parkinson, and CA of the prostate. The patient also had a history of CVA a few months ago. So, the patient was seen in the emergency room and was admitted. The patient had a consult with Dr. Carol Ann Tripp of [place]. During the hospitalization, the patient was complaining of severe headache and also the patient had persistent fever. The patient had different tests done and MRI of the brain. The MRI of the brain does reveal diffuse cerebral atrophy and microangiopathy attributed to the age and also the patient had a WBC nuclear scan that failed to reveal any sort of infection. Before that, CT of the chest was done and that had shown atelectasis and previous scarring changes from the lung bases into the lingula and the lower region, but the patient had also a renal ultrasound, and the renal ultrasound showed that the right kidney contained a small anechoic lesion located in the upper pole, most compatible with a cyst. The left kidney contained also a lesion. It had some features most compatible also with a cyst. The patient in the meantime has received antibiotic and this is the report after the WBC nuclear scan. The antibiotic was discontinued, but the patient's fever has stopped and 24 hours before the discharge, the patient had no fever and was comfortable and did not have any headache. At this time, we decided with Dr. Carol Ann Tripp to discharge this patient home and the patient will be followed in the office. FINAL DIAGNOSES: 1. Fever of unknown origin. 2. Chronic obstructive pulmonary disease. 3. Parkinson. 4. History of carcinoma of the prostate. 5. Obesity. Greg Ryan MD
== END 2017-07-02 12:57 | disposition home or self-care (01) | DRG 192 ==
LOC: C.ER 13:47 → C.9E 17:14 → C.6T 06-25 00:01
PROVIDERS: ADMIT Specialist; ATTEND Specialist
DX: J44.1 Chronic obstructive pulmonary disease with (acute) exacerbation (principal); E87.6 Hypokalemia; G20 Parkinson's disease; B34.9 Viral infection, unspecified; M19.90 Unspecified osteoarthritis, unspecified site; Z85.46 Personal history of malignant neoplasm of prostate; I10 Essential (primary) hypertension; G47.00 Insomnia, unspecified; Z87.891 Personal history of nicotine dependence; D69.6 Thrombocytopenia, unspecified; R26.9 Unspecified abnormalities of gait and mobility; L27.0 Generalized skin eruption due to drugs and medicaments taken internally; T50.995A Adverse effect of other drugs, medicaments and biological substances, initial encounter